=== PATIENT | female | born 1950 | race Caucasian/White ===

== ENCOUNTER → 2018-07-04 | Outpatient (CLI) | payer MEDICARE, BC ==
--- NOTE | 2018-07-04 15:32 | REP ---
PA and lateral chest: There are no comparisons. The lung king are clear. Cardiac size is normal. The johny and mediastinum are unremarkable. There is thoracic scoliosis convex right at the lower thoracic spine left at the thoracolumbar junction. There is grade II compression of the T12 vertebral body, age indeterminate. Electronically Signed by Jessee Rodas MD 07/04/2018 03:24 P
== END ==
LOC: M CLY 14:56
PROVIDERS: ATTEND Family Medicine
DX: M41.24 Other idiopathic scoliosis, thoracic region (principal); G95.20 Unspecified cord compression; R06.02 Shortness of breath; R05 Cough
CPT/HCPCS: 71046; G0463

== ENCOUNTER → 2018-07-12 | Outpatient (REF) | payer MEDICARE, OTHER ==
[2018-07-12 17:12] LABS: ALBUMIN 3.7 GM/DL (3.2-5.2); ALT/SGPT 25 U/L (12-78); BILIRUBIN,TOTAL 0.5 MG/DL (0.2-1.0); BLOOD UREA NITROGEN 16 MG/DL (7-18); CALCIUM LEVEL 8.6 MG/DL (8.8-10.2); CARBON DIOXIDE LEVEL 29 MEQ/L (21-32); CHLORIDE LEVEL 107 MEQ/L (98-107); CHOLESTEROL LEVEL 249 MG/DL (<200); CHOLESTEROL RISK RATIO 5.081 (<5); CREATININE FOR GFR 0.89 MG/DL (0.55-1.30); GLOMERULAR FILTRATION RATE > 60.0 (>45); GLUCOSE, FASTING 95 MG/DL (70-100); HDL CHOLESTEROL 49 MG/DL (>40); LDL CHOLESTEROL 165 MG/DL (<100); NON-HDL-C 200 MG/DL; SODIUM LEVEL 141 MEQ/L (136-145); TOTAL PROTEIN 7.4 GM/DL (6.4-8.2); TRIGLYCERIDES LEVEL 174 MG/DL (<150)
== END ==
LOC: M SFHCCLAY 11:07
PROVIDERS: ATTEND Family Medicine
DX: Z13.1 Encounter for screening for diabetes mellitus (principal); I10 Essential (primary) hypertension; Z13.220 Encounter for screening for lipoid disorders

== ENCOUNTER → 2018-07-19 | Outpatient (REF) | payer MEDICARE, OTHER | LOC: M SFHCCLAY 12:21 | PROVIDERS: ATTEND Family Medicine | DX: R06.02 Shortness of breath (principal); M79.89 Other specified soft tissue disorders | CPT/HCPCS: 83880; 94010; G0463 ==

== ENCOUNTER → 2018-07-25 | Outpatient (CLI) | payer MEDICARE, BC, OTHER ==
--- NOTE | 2018-07-25 15:58 | ECHO ---
OUTPATIENT ECHOCARDIOGRAPHIC REPORT: DATE OF PROCEDURE: 07/25/2018 DATE OF : 1950 AGE: 68 GENDER: Female HEIGHT: 66 inches WEIGHT: 180 pounds BODY SURFACE AREA: 1.19 m2 OUTPATIENT REFERRING PHYSICIAN: Dr. Vane Munson INDICATION: Shortness of breath/edema. MEASUREMENTS: 2-D Measurements: RV: 3.0 cm LV: 3.9 cm Septum: 1.0 cm Posterior wall: 1.0 cm Aortic root: 3.5 cm LA: 3.6 cm LVEF: 75% Doppler Measurements: AV: 1.1 m/s LVOT: 1.0 m/s LVOT diameter: 2.2 cm MV: E 46, A 70, EA ratio 0.7 Early mitral deceleration time: 282 ms E prime: 5 A prime: 11 E/E prime ratio: 9.3 PCWP: 13.3 mmHg PV: 0.7 m/s Pulmonary artery acceleration time: 118 ms RVSP: 33 mmHg IVC: 1.8 cm COMMENTS: Normal sinus rhythm without intraventricular conduction disturbance. M-mode and two-dimensional echocardiography was performed with pulsed, continuous wave, color flow and tissue Doppler studies. Normal left ventricular size, wall thickness and hyperkinetic wall motion. Normal left atrial size but Doppler evidence of an impairment of LV diastolic function with current estimated mean left atrial pressure upper limits of normal. Normal right heart chamber sizes and motion with Doppler evidence of borderline to mild pulmonary hypertension. Normal IVC size and collapse against an elevated central venous pressure. Normal-appearing aortic valve with trace insufficiency. Normal aortic root size. Normal-appearing mitral valvular apparatus with very mild insufficiency. Normal tricuspid valve with mild insufficiency. No apparent intracardiac mass or pericardial effusion. MTDD
== END ==
LOC: M CARPUL 09:21
PROVIDERS: ATTEND Family Medicine
DX: R06.02 Shortness of breath (principal)

== ENCOUNTER → 2019-08-12 | Outpatient (REF) | payer MEDICARE, OTHER ==
[2019-08-12 11:47] LABS: BLOOD UREA NITROGEN 15 MG/DL (7-18); CARBON DIOXIDE LEVEL 29 MEQ/L (21-32); CHLORIDE LEVEL 105 MEQ/L (98-107); CHOLESTEROL LEVEL 232 MG/DL (<200); CHOLESTEROL RISK RATIO 6.444 (<5); CREATININE FOR GFR 0.77 MG/DL (0.55-1.30); GLOMERULAR FILTRATION RATE > 60.0 (>45); GLUCOSE, FASTING 98 MG/DL (70-100); HDL CHOLESTEROL 36 MG/DL (>40); LDL CHOLESTEROL 143 MG/DL (<100); MAGNESIUM LEVEL 2.3 MG/DL (1.8-2.4); NON-HDL-C 196 MG/DL; POTASSIUM SERUM 3.9 MEQ/L (3.5-5.1); SODIUM LEVEL 139 MEQ/L (136-145); TRIGLYCERIDES LEVEL 267 MG/DL (<150)
[2019-08-12 11:55] LABS: VITAMIN B12 LEVEL 379 PG/ML (247-911)
== END ==
LOC: M SFHCCLAY 08:30
PROVIDERS: ATTEND Family Medicine
DX: Z00.00 Encounter for general adult medical examination without abnormal findings (principal); Z13.220 Encounter for screening for lipoid disorders; I11.9 Hypertensive heart disease without heart failure; Z79.899 Other long term (current) drug therapy

== ENCOUNTER → 2019-09-02 | Outpatient (REF) | payer MEDICARE, OTHER ==
[~2019-09-02] MED LIST: ALBU8.5H INH; AMLO1TAB24 PO; BREO1INH INH; CELE1CAP9 PO; GUAISYP9 PO; IRBE300T7 PO; MECL-86 PO; OMEP-218 PO; ROPI0.253 PO; SERT50TA29 PO
== END ==
LOC: M SFHCCLAY 14:29
PROVIDERS: ATTEND Family Medicine
DX: Z11.59 Encounter for screening for other viral diseases (principal); R53.83 Other fatigue; R52 Pain, unspecified
CPT/HCPCS: G0463; U0003

== ENCOUNTER → 2019-11-26 | Outpatient (CLI) | payer MEDICARE, BC, OTHER ==
[~2019-11-26] MED LIST changes: -ALBU8.5H INH; -AMLO1TAB24 PO; -BREO1INH INH; -CELE1CAP9 PO; -GUAISYP9 PO; -IRBE300T7 PO; -MECL-86 PO; +METHACHOLINE KIT (J7674) INH ONE; -OMEP-218 PO; -ROPI0.253 PO; -SERT50TA29 PO
--- NOTE | 2019-11-26 10:48 | PFTRPT ---
Visit Date: 11/26/2019 Referring Doctor: PATRICK Wilder Marcus, M Height: 65.00 Inches Weight: 190.00 Lbs BSA: 1.94 Diagnosis: R06.00 QUALITY: Study of excellent technical quality. PROCEDURE: Under protocol, methacholine was administered. At a maximal dose of 2.5 mg or 188.875 CDUs, a 22% decline of the FEV1 was noted. PC of 10.1 is in the borderline category. Flow rates did return to baseline post-bronchodilator administration. IMPRESSION: Indeterminate methacholine challenge study. Clinical correlation with the above will be necessary. MTDD
--- NOTE | 2019-12-03 11:24 | METHCHAL ---
METHACHOLINE CHALLENGE STUDY DATE: 11/26/2019 ORDERED BY: Renay Beaver QUALITY: Study of excellent technical quality. PROCEDURE: Under protocol, methacholine was administered. At a maximal dose of 2.5 mg or 188.875 CDUs, a 22% decline of the FEV1 was noted. PC of 10.1 is in the borderline category. Flow rates did return to baseline post-bronchodilator administration. IMPRESSION: Indeterminate methacholine challenge study. Clinical correlation with the above will be necessary. MTDD
== END ==
LOC: M CARPUL 09:41
PROVIDERS: ATTEND Physician Assistant
DX: R06.00 Dyspnea, unspecified (principal)
CPT/HCPCS: 94070; 95070; J7674

== ENCOUNTER 2019-12-30 11:45 | Emergency (ER) | payer MEDICARE, BC, OTHER ==
[~2019-12-30] VITALS: Ht 160 cm; Wt 69.5 kg
[2019-12-30] MEDS ORDERED: NS 1,000 ML IV SCH (12:00)
[2019-12-30 12:20] LABS: BASO % 0.4 % (0.0-1.0); EOS % 0.3 % (0.0-3.0); HEMATOCRIT 44.3 % (36.0-47.0); HEMOGLOBIN 13.4 g/dl (12.0-15.5); LYMPH # 2.8 10^3/uL (1.5-5.0); LYMPH % 35.6 % (24.0-44.0); MEAN CORPUSCULAR HEMOGLOBIN 27.2 pg (27.0-33.0); MEAN CORPUSCULAR HGB CONC 30.2 g/dl (32.0-36.5); MEAN CORPUSCULAR VOLUME 89.9 fl (80.0-96.0); MONO # 0.5 10^3/uL (0.0-0.8); MONO % 6.3 % (0.0-5.0); NEUTROPHILS # 4.6 10^3/uL (1.5-8.5); PLATELET COUNT, AUTOMATED 190 10^3/uL (150-450); RED BLOOD COUNT 4.93 10^6/uL (4.00-5.40)
[2019-12-30 12:54] LABS: LDH LACTATE DEHYDROGENASE 691 U/L (84-246)
--- NOTE | 2019-12-30 13:10 | REP ---
INDICATION: Coronavirus workup. COMPARISON: 07/04/2018, 10/14/2019 TECHNIQUE: AP SEATED PORTABLE CHEST FINDINGS: LUNG MANNING ARE WELL INFLATED. THERE IS NO PLEURAL EFFUSION OR LATERAL PLEURAL THICKENING. I SEE NO DEFINITE INFILTRATE, PULMONARY NODULE OR PARENCHYMAL MASS. NO APICAL PLEUROPARENCHYMAL SCARRING. THE HEART IS NOT ENLARGED. THE AORTA IS A TORTUOUS AND CALCIFIED AT THE ARCH WITHOUT ANEURYSM. ITS APPEARANCE STABLE. DEGENERATIVE CHANGES IN THE SPINE AND SHOULDERS AGAIN NOTED. NO FREE AIR. IMPRESSION: NO ACUTE CARDIOPULMONARY CHANGE. STABLE CHEST WITHOUT EFFUSION OR INFILTRATE. <Electronically signed by Hermilo Higginbotham > 12/30/19 [id number]
[2019-12-30 13:26] LABS: CK-MB VALUE MASS < 1.0 NG/ML (<3.6); CPK CREATINE PHOSPHOKINASE 195 U/L (26-192); MB/CK RELATIVE INDEX 0.51 (< OR =4); TROPONIN I < 0.02 NG/ML (< 0.10)
[2019-12-30 13:27] LABS: FERRITIN 121 NG/ML (8-252)
[2019-12-30] MEDS ORDERED: GUAISYP9 PO (16:42)
[2019-12-30] MEDS ORDERED: ROPI0.253 PO (16:42)
[2019-12-30] MEDS ORDERED: MECL-86 PO (16:42)
[2019-12-30] MEDS ORDERED: BREO1INH INH (16:42)
[2019-12-30] MEDS ORDERED: SERT50TA29 PO (16:42)
[2019-12-30] MEDS ORDERED: AMLO1TAB24 PO (16:42)
[2019-12-30] MEDS ORDERED: OMEP-218 PO (16:42)
[2019-12-30] MEDS ORDERED: IRBE300T7 PO (16:42)
[2019-12-30] MEDS ORDERED: ALBU8.5H INH (16:42)
[2019-12-30] MEDS ORDERED: CELE1CAP9 PO (16:42)
[2019-12-30 16:49] LABS: ALBUMIN 3.4 GM/DL (3.2-5.2); ALT/SGPT 32 U/L (12-78); BILIRUBIN,DIRECT < 0.1 MG/DL (0.0-0.2); BILIRUBIN,TOTAL 0.6 MG/DL (0.2-1.0); C REACTIVE PROTEIN QUANTITATIV 2.02 MG/DL (0.00-0.30); TOTAL PROTEIN 7.5 GM/DL (6.4-8.2)
--- NOTE | 2019-12-30 17:58 | CR.PDOC ---
General Date of Consultation: Dec 30, 2019 Referring Provider: Azucena Caceres MD Primary Care Physician: LEROY MTZ DO Attending Physician: CHAITANYA GUERRERO MD Consultation REASON FOR CONSULTATION/CHIEF COMPLAINT: SOB, COVID-19 +, Vasovagal Syncope HISTORY OF PRESENT ILLNESS: Patient is a 69 year old female with a past medical history significant for depressive disorder, hypertension, and reactive airway disease who presented to the [facility] ER with complaint of worsening shortness of breath. About 1-2 weeks ago the patient had noticed increased shortness of breat h and cough. She was then made aware that a friend of hers had tested positive for COVID-19. She went to be tested on Monday11/24/2019 and was found to be positive for COVID-19. Since that time she has had fevers and shortness of breath. She noted increased shortness of breath today and was advised by [facility] to present to the ER for evaluation. In the ER the patient received a chest x-ray which was unremarkable. Her laboratory studies were unrevealing with exception to elevation in LDH as is expected in COVID-19 infection. During blood draw the patient reportedly had a syncopal episode although this was not witnessed by ER staff. The patient stated that this happens when she gets blood drawn. She stated that she felt it coming on and felt hot and sweaty. She denied any chest pain, dizziness, or lightheadedness. Additionally, the patient reportedly became hypoxic with oxygen saturation of 88% on exertion. Hospitalist service was called for admission due to hypoxia and possible syncope. On evaluation in the ED the patient was vitally stable. She was normotensive and oxygen saturations of 97% on room air. She did not appear to be in any acute distress. She was lying comfortably in the stretcher. She stated that she would like to go home. Her son was contacted at the patients request who also agreed with the patient being sent home. Her syncopal episode appeared to be vasovagal in nature and at the current time the patient was not hypoxic ALLERGIES: Please see below. HOME MEDICATIONS: Please see below. PAST MEDICAL HISTORY: 1. Asthma 2. Depressive Disorder 3. Hypertension 4. GERD PAST SURGICAL HISTORY: 1. Bilateral Hip Replacement 2. Rotator Cuff Repair on Left 3. Total Hysterectomy 4. Appendectomy 5. Cholecystectomy FAMILY HISTORY: Denies any family history of sudden cardiac SOCIAL HISTORY: Lives at home with . Denies any history of smoking. Denies alcohol or drug abuse. REVIEW OF SYSTEMS: CONSTITUTIONAL: Admits to fevers. Denies chills. Denies unintentional weight- loss. Denies night sweats HEENT: Admits to cough. Denies sputum production CARDIOVASCULAR: Denies chest pain, pressure, palpitations, or feelings of the heart racing RESPIRATORY: Admits to shortness of breath. GENITOURINARY: Denies dysuria or increased frequency MUSCULOSKELETAL: Admits to some weakness. GASTROINTESTINAL: Admits to loose stool this morning. Denies abdominal pain, nausea, or vomiting SKIN: Denies rashes or lesions NEUROLOGICAL: Denies changes in speech or gait PSYCHIATRIC: Admits to history of depression ENDOCRINE: Denies heat intolerance or cold intolerance HEMATOLOGIC/LYMPHATIC: Denies easy bruising or bleeding PHYSICAL EXAMINATION: VITAL SIGNS: Please see below. GENERAL APPEARANCE: Awake, alert, and oriented. Appears in no acute distress. Lying comfortably in stretcher HEENT: Atraumatic, normocephalic. Eyes are nonicteric. Trachea is midline RESPIRATORY: Clear breath sounds bilaterally. Slightly decreased in bases. Good respiratory effort. No wheezes, rhonchi, or rales CARDIOVASCULAR: Normal S1, S2. Regular rate and rhythm. No clicks rubs or murmurs ABDOMEN: Soft, nondistended. Nontender. Normoactive bowel sounds EXTREMITIES: No edema. Full and equal pulses in bilateral upper and lower extremities NEUROLOGICAL: No focal neurological deficits PSYCHIATRIC: Mood and affect appear appropriate LABORATORY DATA: Please see below. ASSESSMENT/PLAN: 1. Shortness of breath 2/2 COVID-19 -Patient presented with worsening shortness of breath. She was noted by ER staff to have desaturated to 88% with exertion. On evaluation in the ER the patient was not hypoxic. She was saturating at 97% on room air. Laboratory examination did demonstrate any abnormalities. Patient received a chest x-ray which did not demonstrate any abnormal findings -Patient was recommended to discharge home from ER. She is not hypoxic and otherwise vitally stable with no current indication for admission 2. Vasovagal Syncope -ER staff had stated that the patient had a syncopal episode that was unwitnessed. The patient states that she had gotten her blood drawn and felt a hot heavy feeling come over her and then she does not remember anything after that. She states that this has happened before when she has had blood drawn. She recalls maybe a dozen episodes similar to this in her lifetime. -Patients syncopal episode is likely vasovagal given the history. She has been sinus rhythm. She is not hypoxic. Patient wishes to go home. -Recommend 1L NS and discharge home Disposition: Patient was evaluated in the ED. Patient wishes to return home. Her evaluation is rather benign. She did experience a syncopal episode however this is likely vasovagal. Patients plan of care was discussed with her son, Rinku Vega, who can be reached at [phone]. He was informed that the patients care would not be any different in the hospital vs at home. Both patient and son are agreeable to the care plan. Patient and son were advised to return to ED if patients shortness of breath worsened Laboratory Data Labs 24H Laboratory Tests 2 12/30/19 11:59: Bedside Glucose (Misc Panel) 98 12/30/19 12:00: Lactic Acid Level 1.8 12/30/19 12:09: Immature Granulocyte % (Auto) 0.4, Neutrophils (%) (Auto) 57.0, Lymphocytes (%) (Auto) 35.6, Monocytes (%) (Auto) 6.3H, Eosinophils (%) (Auto) 0.3, Basophils (%) (Auto) 0.4, Neutrophils # (Auto) 4.6, Lymphocytes # (Auto) 2.8, Monocytes # (Auto) 0.5, Eosinophils # (Auto) 0.0, Basophils # (Auto) 0.0, Nucleated Red Blood Cells % (auto) 0.0, Ferritin 121, Total Bilirubin 0.6, Direct Bilirubin < 0.1, Aspartate Amino Transf (AST/SGOT) 73H, Alanine Aminotransferase (ALT/SGPT) 32, Alkaline Phosphatase 98, Lactate Dehydrogenase 691H, Total Creatine Kinase 195H, Creatine Kinase MB < 1.0, Creatine Kinase MB Relative Index 0.51, Troponin I < 0.02, C-Reactive Protein, Quantitative 2.02H, Total Protein 7.5, Albumin 3.4, Albumin/Globulin Ratio 0.8L 12/30/19 16:20: 12/30/19 16:22: POC Glucose (Misc Panel) 100, POC Sodium (Misc Panel) 133L, POC Potassium (Misc Panel) 4.9, POC Chloride (Misc Panel) 98, POC Total CO2 (Misc Panel) 28.0H, POC Blood Urea Nitrogen (Misc Panel 21, POC Ionized Calcium (Misc Panel) 4.0L, POC Creatinine (Misc Panel) 0.9, POC Hematocrit (Misc Panel) 45.0 CBC/BMP Laboratory Tests 12/30/19 12:09 Microbiology Microbiology 12/30/19 Blood Culture, Received Pending Allergies Coded Allergies: No Known Allergies (Unverified , 11/22/19) Home Medications Scheduled Amlodipine Besylate (Amlodipine Besylate) 5 Mg Tablet, 5 MG PO QHS, (Reported) Celecoxib (Celecoxib) 200 Mg Capsule, 200 MG PO DAILY, (Reported) Fluticasone/Vilanterol (Breo Ellipta 100-25 Mcg INH) 1 Each Blst.w.dev, 1 PUFF INH DAILY, (Reported) Irbesartan (Irbesartan) 300 Mg Tablet, 300 MG PO DAILY, (Reported) Omeprazole (Omeprazole) 20 Mg Capsule.dr, 20 MG PO DAILY, (Reported) Ropinirole HCl (Ropinirole HCl) 0.25 Mg Tablet, 0.25 MG PO QHS, (Reported) Sertraline HCl (Sertraline HCl) 50 Mg Tablet, 50 MG PO DAILY, (Reported) Scheduled PRN Albuterol Sulfate (Albuterol Sulfate Hfa) 8.5 Gm Hfa.aer.ad, 2 PUFF INH Q4H PRN for SOB/WHEEZING, (Reported) Codeine Phosphate/Guaifenesin (Guaiatussin AC Liquid) 118 Ml Liquid, 5 ML PO QHS PRN for COUGH, (Reported) Meclizine HCl (Meclizine HCl) 25 Mg Tablet, 25 MG PO TID PRN for NAUSEA OR VOMITING, (Reported) GME ATTESTATION GME ATTESTATION My faculty preceptor for this patient encounter was physically present during the encounter and was fully available. All aspects of the patient interview, examination, medical decision making process, and medical care plan development were reviewed and approved by the faculty preceptor. The faculty preceptor is aware and concurs with the plan as stated in the body of this note and will attest to such by his/her cosignature. ATTENDING NOTE I, Chaitanya Guerrero, have independently examined this patient and performed my own physical exam, as well as reviewed the documentation and edited where necessary. I have discussed in detail with the resident / student the findings and plan of treatment as documented by the resident / student and edited their note. I agree with their findings and treatment plan and have edited their documentation. I will continue to follow the patient during this hospital stay. JULIANNE GUTIERREZ DO Dec 30, 2019 17:58 CHAITANYA GUERRERO MD Dec 30, 2019 18:14
[2019-12-30 18:40] VITALS: BP 142/73
--- NOTE | 2019-12-31 00:51 | ECGEPIP ---
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
== END 2019-12-30 18:40 | disposition home or self-care (01) ==
LOC: M ED 11:45
DX: U07.1 COVID-19 (principal); R53.83 Other fatigue; R50.9 Fever, unspecified; R05 Cough; I10 Essential (primary) hypertension; R55 Syncope and collapse; F32.9 Major depressive disorder, single episode, unspecified; J45.909 Unspecified asthma, uncomplicated; K21.9 Gastro-esophageal reflux disease without esophagitis

== ENCOUNTER 2020-01-03 17:10 | Inpatient (IN) | payer MEDICARE, BC, OTHER ==
[~2020-01-03] VITALS: Ht 165.1 cm; Wt 82.9 kg
[2020-01-03] MEDS: amLODIPine 5 MG TAB PO SCH
[2020-01-03] MEDS: methylPREDNISolone 40MG 1ML VIAL IV SCH
[2020-01-03] MEDS: ENOXAPARIN 40MG/0.4ML SYRINGE (J1650 PER 10MG) SC SCH
[~2020-01-03 17:10] MED LIST changes: +ALBU8.5H INH; +AMLO1TAB24 PO; +BREO1INH INH; +CELE1CAP9 PO; +GUAISYP9 PO; +IRBE300T7 PO; +MECL-86 PO; -METHACHOLINE KIT (J7674) INH ONE; +OMEP-218 PO; +ROPI0.253 PO; +SERT50TA29 PO
[2020-01-03 17:53] LABS: ABG BASE EXCESS 0.8 (-2.0-2.0); ABG HCO3 24.4 MEQ/L (22.0-26.0); ABG O2 SATURATION 82.9 % (95.0-99.0); ABG PARTIAL PRESSURE CO2 35.8 mmHg (35.0-45.0); ABG STANDARD HCO3 24.8 MEQ/L (22.0-26.0); ABG TOTAL CO2 25.5 MEQ/L (23.0-31.0); ABG pH (ARTERIAL) 7.451 UNITS (7.350-7.450)
[2020-01-03 18:11] LABS: BASO % 0.2 % (0.0-1.0); EOS % 0.3 % (0.0-3.0); HEMATOCRIT 38.8 % (36.0-47.0); HEMOGLOBIN 12.2 g/dl (12.0-15.5); LYMPH # 1.8 10^3/uL (1.5-5.0); LYMPH % 17.4 % (24.0-44.0); MEAN CORPUSCULAR HEMOGLOBIN 27.4 pg (27.0-33.0); MEAN CORPUSCULAR HGB CONC 31.4 g/dl (32.0-36.5); MEAN CORPUSCULAR VOLUME 87.2 fl (80.0-96.0); MONO # 0.4 10^3/uL (0.0-0.8); MONO % 4.2 % (0.0-5.0); NEUTROPHILS # 7.8 10^3/uL (1.5-8.5); NEUTROPHILS % 77.2 % (36.0-66.0); PLATELET COUNT, AUTOMATED 229 10^3/uL (150-450); RED BLOOD COUNT 4.45 10^6/uL (4.00-5.40)
[2020-01-03 18:29] LABS: INR 1.21; PARTIAL THROMBOPLASTIN TIME 36.8 SECONDS (24.2-38.5); PROTHROMBIN TIME 15.6 SECONDS (12.5-14.3)
[2020-01-03 18:32] LABS: D-DIMER QUANT 1424.38 ng/ml (<500)
[2020-01-03 18:34] LABS: C REACTIVE PROTEIN QUANTITATIV 9.38 MG/DL (0.00-0.30); FERRITIN 281 NG/ML (8-252); LDH LACTATE DEHYDROGENASE 248 U/L (84-246)
[2020-01-03 18:42] LABS: ALBUMIN 3.1 GM/DL (3.2-5.2); ALT/SGPT 46 U/L (12-78); BILIRUBIN,DIRECT 0.1 MG/DL (0.0-0.2); BILIRUBIN,TOTAL 0.6 MG/DL (0.2-1.0); BLOOD UREA NITROGEN 15 MG/DL (7-18); CALCIUM LEVEL 8.3 MG/DL (8.8-10.2); CARBON DIOXIDE LEVEL 25 MEQ/L (21-32); CHLORIDE LEVEL 100 MEQ/L (98-107); CK-MB VALUE MASS < 1.0 NG/ML (<3.6); CPK CREATINE PHOSPHOKINASE 65 U/L (26-192); GLOMERULAR FILTRATION RATE > 60.0 (>45); GLUCOSE, FASTING 99 MG/DL (70-100); MB/CK RELATIVE INDEX 1.54 (< OR =4); POTASSIUM SERUM 3.6 MEQ/L (3.5-5.1); SODIUM LEVEL 133 MEQ/L (136-145); TOTAL PROTEIN 6.5 GM/DL (6.4-8.2); TROPONIN I < 0.02 NG/ML (< 0.10)
--- NOTE | 2020-01-03 18:58 | REP ---
INDICATION: CHEST PAIN. COMPARISON: 12/30/2019 FINDINGS: The technique utilized in obtaining the radiograph has magnified the cardiac silhouette and accentuated the interstitial markings. The superior mediastinal structures are midline. The cardiac silhouette is unremarkable in size, shape, and position. The diaphragmatic surfaces of the lungs are regular, and the costophrenic angles are clear. The pulmonary king are clear. The imaged osseous structures are intact. IMPRESSION: There is no acute cardiopulmonary disease. <Electronically signed by John Colón > 01/03/20 1343
--- NOTE | 2020-01-03 19:30 | ECGEPIP ---
[facility] - ED Test Date: 2020-01-03 Pat Name: ELIZABETH CLARK Department: Room: - Gender: Female Psychologist Developmental: CAPO : 1950 Requested By: JOAN Lopez Order Number: [id number] Reading MD: Azucena Caceres Measurements Intervals [place] Rate: 86 P: 60 NC: 153 QRS: 37 QRSD: 97 T: 59 QT: 387 QTc: 464 Interpretive Statements SINUS RHYTHM Electronically Signed on 01-03-2020 19:30:36 EST by Azucena Caceres
[2020-01-03] MEDS ORDERED: ACET-683 PO (20:46)
[2020-01-03] MEDS ORDERED: dexameTHASONE 4 MG/ML 1ML VIAL (J1100 PER 1MG) IV SCH (21:00)
[2020-01-03] MEDS ORDERED: ALBUTEROL 90 MCG/ACT 8GM HFA INHALER INH PRN ×2 (21:30→22:45)
[2020-01-03] MEDS ORDERED: MECLIZINE 25 MG TABLET PO PRN (21:30)
[2020-01-03 21:46] LABS: INR 1.24; PROTHROMBIN TIME 15.9 SECONDS (12.5-14.3)
[2020-01-03 21:47] LABS: PARTIAL THROMBOPLASTIN TIME 35.9 SECONDS (24.2-38.5)
[2020-01-03 21:50] LABS: D-DIMER QUANT 1433.52 ng/ml (<500)
[2020-01-03 21:59] LABS: ALBUMIN 3.2 GM/DL (3.2-5.2); ALT/SGPT 52 U/L (12-78); BILIRUBIN,DIRECT 0.2 MG/DL (0.0-0.2); BILIRUBIN,TOTAL 0.7 MG/DL (0.2-1.0); C REACTIVE PROTEIN QUANTITATIV 9.42 MG/DL (0.00-0.30); CK-MB VALUE MASS < 1.0 NG/ML (<3.6); CPK CREATINE PHOSPHOKINASE 44 U/L (26-192); FERRITIN 282 NG/ML (8-252); LDH LACTATE DEHYDROGENASE 254 U/L (84-246); MB/CK RELATIVE INDEX 2.27 (< OR =4); NT-PRO BNP 190 PG/ML (<125); TOTAL PROTEIN 6.5 GM/DL (6.4-8.2); TRIGLYCERIDES LEVEL 120 MG/DL (<150); TROPONIN I < 0.02 NG/ML (< 0.10)
[2020-01-03 22:18] LABS: HEPATITIS B SURFACE ANTIGEN NEGATIVE (NEGATIVE)
--- NOTE | 2020-01-03 22:37 | IPNPDOC ---
Date Seen The patient was seen on 01/03/20. Progress Note Per pulmologist call center support consultant, Dr. Bradford, recommendations are as follows: -due to severe hypoxia 87% RA o2 sat at rest , and 84% RA o2 sat with ambulation, may start on 5day course of Remdesevir, despite normal CXR. -monitor daily LFTs. -start on solumedrol 40 mg iv bid. dc decadron. VS, I&O, 24H, Fishbone Vital Signs/I&O Vital Signs Date Time Temp Pulse Resp B/P (MAP) Pulse Ox O2 Delivery O2 Flow Rate FiO2 01/03/20 17:26 99.6 91 16 115/56 95 Room Air Laboratory Data 24H LABS Laboratory Tests 2 01/03/20 17:40: Blood Gas Bicarbonate Standard 24.8, Arterial Blood pH 7.451H, Arterial Blood Partial Pressure CO2 35.8, Arterial Blood Partial Pressure O2 43.0*L, Arterial Blood Total CO2 25.5, Arterial Blood HCO3 24.4, Arterial Blood Base Excess 0.8, Arterial Blood Oxygen Saturation 82.9L 01/03/20 17:53: Immature Granulocyte % (Auto) 0.7, Neutrophils (%) (Auto) 77.2H, Lymphocytes (%) (Auto) 17.4L, Monocytes (%) (Auto) 4.2, Eosinophils (%) (Auto) 0.3, Basophils (%) (Auto) 0.2, Neutrophils # (Auto) 7.8, Lymphocytes # (Auto) 1.8, Monocytes # (Auto) 0.4, Eosinophils # (Auto) 0.0, Basophils # (Auto) 0.0, Nucleated Red Blood Cells % (auto) 0.0 01/03/20 17:54: Prothrombin Time 15.6H, Prothromb Time International Ratio 1.21, Activated Partial Thromboplast Time 36.8, D-Dimer, Quantitative 1424.38H, Anion Gap 8, Glomerular Filtration Rate > 60.0, Calcium Level 8.3L, Ferritin 281H, Total Bilirubin 0.6, Direct Bilirubin 0.1, Aspartate Amino Transf (AST/SGOT) 54H, Alanine Aminotransferase (ALT/SGPT) 46, Alkaline Phosphatase 100, Lactate Dehydrogenase 248H, Total Creatine Kinase 65, Creatine Kinase MB < 1.0, Creatine Kinase MB Relative Index 1.54, Troponin I < 0.02, C-Reactive Protein, Quantitative 9.38H, Total Protein 6.5, Albumin 3.1L, Albumin/Globulin Ratio 0.9L, Procalcitonin <0.05 01/03/20 18:23: POC pH (Misc Panel) 7.485H, POC Base Excess (Misc Panel) -3.0L, POC Saturated Percent O2 (Misc) 94L, POC pO2 (Misc Panel) 64.0L, POC pCO2 (Misc Panel) 26.7L, POC HCO3 (Misc Panel) 20.1L, POC Total CO2 (Misc Panel) 21.0L 01/03/20 21:24: Prothrombin Time 15.9H, Prothromb Time International Ratio 1.24, Activated Partial Thromboplast Time 35.9, Fibrinogen 528H, D-Dimer, Quantitative 1433.52H, Lactic Acid Level 1.0, Ferritin 282H, Total Bilirubin 0.7, Direct Bilirubin 0.2, Aspartate Amino Transf (AST/SGOT) 56H, Alanine Aminotransferase (ALT/SGPT) 52, Alkaline Phosphatase 102, Lactate Dehydrogenase 254H, Total Creatine Kinase 44, Creatine Kinase MB < 1.0, Creatine Kinase MB Relative Index 2.27, Troponin I < 0.02, C-Reactive Protein, Quantitative 9.42H, TI-Hfg-P-Type Natriuretic Peptide 190H, Total Protein 6.5, Albumin 3.2, Albumin/Globulin Ratio 1.0L, Triglycerides Level 120, Hepatitis B Surface Antigen NEGATIVE CBC/BMP Laboratory Tests 01/03/20 17:53 01/03/20 17:54 Microbiology Microbiology 01/03/20 Blood Culture, Received Pending 01/03/20 Blood Culture, Received Pending JONO VIRGEN MD Jan 03, 2020 22:37
[2020-01-03 22:47] LABS: HIV 1&2 SCREEN CENTAUR NEGATIVE (NEGATIVE)
--- NOTE | 2020-01-03 22:57 | HPEPDOC ---
[facility] Medical History & Physical Date of Admission Jan 03, 2020 Date of Service: Jan 03, 2020 Primary Care Physician: LEROY MTZ DO Attending Physician: JONO VIRGEN MD History and Physical CHIEF COMPLAINT: Shortness of breath, low oxygen saturations HISTORY OF PRESENT ILLNESS: Patient is a 69-year-old female who presented to the emergency department earlier today after monitoring her oxygen saturations at home and finding them to be in the mid 80s. Patient was diagnosed with Covid 19 back on 12/26/2019. Since then, she has been experiencing some difficulty tiana athing with exertion, low-grade fevers, body aches, and diarrhea. Patient states that she has been monitoring her oxygen and during the day today, it dropped into the mid 80s which prompted her to come in the emergency department. While in the emergency room, patient's oxygen saturations on room air were greater than 95%. When ambulated, patient's O2 saturation dropped into the 80s and she was subsequently placed on low-flow oxygen with nasal cannula. Patient says she still feels achy and very tired but is otherwise doing okay. She's had a dry cough that has been nonproductive. Patient's was also diagnosed with Covid 19 around the same time but he has not had any issues with the virus. PAST MEDICAL HISTORY: 1. Hypertension. 2. Depression. 3. GERD. 4. Restless leg syndrome 5. Skin cancer on left side of nose followed by dermatology in [place] 6. Recent diagnosis of asthma PAST SURGICAL HISTORY: 1. Cholecystectomy. 2. Right rotator cuff repair. 3. Bilateral total hip arthroplasties. 4. Total hysterectomy 5. Skin cancer removal SOCIAL HISTORY: Patient was at home with her and denies smoking cigarettes, drinking alcohol, or any other drug use. Patient is retired FAMILY HISTORY: Patient denies any pertinent history. On chart review, patient's parents are both and both had a history of hypertension ALLERGIES: Please see below. REVIEW OF SYSTEMS: General: Patient reports low-grade fevers for the past 8 days HEENT: Patient denies headaches Cardiovascular: Patient denies chest pain Respiratory: Patient reports some difficulty breathing with exertion and a dry cough GI: Patient reports some nausea and diarrhea but denies abdominal pain and vomiting : Patient denies increased frequency or pain with urination Extremities: Patient denies swelling or pain in extremities Neurological: Patient denies numbness or tingling in legs Skin: Patient denies any new rashes or lesions. Hematologic: Patient denies any easy bruising. Lymphatic: Patient denies any lumps lumps or bumps in neck, axilla, or groin HOME MEDICATIONS: Please see below. PHYSICAL EXAMINATION: VITAL SIGNS: See below General: Alert and oriented female patient who was laying on the stretcher in the emergency department with nasal cannula oxygen in place when I walked into the room. Patient did not appear to be in any acute distress but did appear very tired HEENT: Normocephalic, atraumatic, moist mucous membranes. Neck: No lymphadenopathy or thyromegaly Cardiac: Regular rate and rhythm, no murmurs, normal S1, normal S2 Pulm: Clear to auscultation bilaterally. No wheezes, rhonchi, rales Abd: Nondistended, nontender to palpation, normal bowel sounds Ext: No edema bilateral lower extremities dorsalis pedis pulses 2/4 bilaterally. Skin: No rashes or other lesions present. LABORATORY DATA: See below. IMAGING: A chest x-ray performed on 01/03/2020 was reported to show no acute cardiopulmonary disease. MICROBIOLOGY: Please see below. ASSESSMENT: Patient is a 69-year-old female who was diagnosed with Covid 19 on 12/26/2019 who has been monitoring her O2 saturations at home and found them to be in the mid 80s today. PLAN: 1. Covid 19. Patient reports her oxygen saturation to be in the mid 80s when she was at home. In the emergency department while at rest, her O2 saturations are around 95% or greater. When patient ambulated, her O2 saturations drop. Patient's O2 saturations did decrease to the low 90s while on nasal cannula oxygen. Pulmonology was contacted who recommended starting the patient on Remdesivir as well as Solu-Medrol. Ultrasound of the lower legs we done to rule out any DVT that is formed. Patient will be placed on therapeutic Lovenox. 2. Hypertension. We will continue patient's home medications with hold parameters. 3. Asthma. We will continue the patient's home medications and monitor the patient's oxygen saturation closely due to the Covid 19. Patient is not currently wheezy so I do not believe this is an asthma exacerbation. 4. GERD. We'll continue the patient's medications 5. Depression. We will continue the patient's home medications. 6. DVT prophylaxis: Patient is on therapeutic doses of Lovenox. CODE STATUS: Full code Vital Signs Vital Signs Date Time Temp Pulse Resp B/P (MAP) Pulse Ox O2 Delivery O2 Flow Rate FiO2 01/03/20 17:26 99.6 91 16 115/56 95 Room Air Laboratory Data Labs 24H Laboratory Tests 2 01/03/20 17:40: Blood Gas Bicarbonate Standard 24.8, Arterial Blood pH 7.451H, Arterial Blood Partial Pressure CO2 35.8, Arterial Blood Partial Pressure O2 43.0*L, Arterial Blood Total CO2 25.5, Arterial Blood HCO3 24.4, Arterial Blood Base Excess 0.8, Arterial Blood Oxygen Saturation 82.9L 01/03/20 17:53: Immature Granulocyte % (Auto) 0.7, Neutrophils (%) (Auto) 77.2H, Lymphocytes (%) (Auto) 17.4L, Monocytes (%) (Auto) 4.2, Eosinophils (%) (Auto) 0.3, Basophils (%) (Auto) 0.2, Neutrophils # (Auto) 7.8, Lymphocytes # (Auto) 1.8, Monocytes # (Auto) 0.4, Eosinophils # (Auto) 0.0, Basophils # (Auto) 0.0, Nucleated Red Blood Cells % (auto) 0.0 01/03/20 17:54: Prothrombin Time 15.6H, Prothromb Time International Ratio 1.21, Activated Partial Thromboplast Time 36.8, D-Dimer, Quantitative 1424.38H, Anion Gap 8, Glomerular Filtration Rate > 60.0, Calcium Level 8.3L, Ferritin 281H, Total Bilirubin 0.6, Direct Bilirubin 0.1, Aspartate Amino Transf (AST/SGOT) 54H, Alanine Aminotransferase (ALT/SGPT) 46, Alkaline Phosphatase 100, Lactate Dehydrogenase 248H, Total Creatine Kinase 65, Creatine Kinase MB < 1.0, Creatine Kinase MB Relative Index 1.54, Troponin I < 0.02, C-Reactive Protein, Quantitative 9.38H, Total Protein 6.5, Albumin 3.1L, Albumin/Globulin Ratio 0.9L, Procalcitonin <0.05 01/03/20 18:23: POC pH (Misc Panel) 7.485H, POC Base Excess (Misc Panel) -3.0L, POC Saturated Percent O2 (Misc) 94L, POC pO2 (Misc Panel) 64.0L, POC pCO2 (Misc Panel) 26.7L, POC HCO3 (Misc Panel) 20.1L, POC Total CO2 (Misc Panel) 21.0L 01/03/20 21:24: Prothrombin Time 15.9H, Prothromb Time International Ratio 1.24, Activated Partial Thromboplast Time 35.9, Fibrinogen 528H, D-Dimer, Quantitative 1433.52H, Lactic Acid Level 1.0, Ferritin 282H, Total Bilirubin 0.7, Direct Bilirubin 0.2, Aspartate Amino Transf (AST/SGOT) 56H, Alanine Aminotransferase (ALT/SGPT) 52, Alkaline Phosphatase 102, Lactate Dehydrogenase 254H, Total Creatine Kinase 44, Creatine Kinase MB < 1.0, Creatine Kinase MB Relative Index 2.27, Troponin I < 0.02, C-Reactive Protein, Quantitative 9.42H, UU-Raw-N-Type Natriuretic Peptide 190H, Total Protein 6.5, Albumin 3.2, Albumin/Globulin Ratio 1.0L, Triglycerides Level 120, Hepatitis B Surface Antigen NEGATIVE CBC/BMP Laboratory Tests 01/03/20 17:53 01/03/20 17:54 Microbiology Microbiology 01/03/20 Blood Culture, Received Pending 01/03/20 Blood Culture, Received Pending Home Medications Scheduled Amlodipine Besylate (Amlodipine Besylate) 5 Mg Tablet, 5 MG PO QHS Celecoxib (Celecoxib) 200 Mg Capsule, 200 MG PO DAILY Fluticasone/Vilanterol (Breo Ellipta 100-25 Mcg INH) 1 Each Blst.w.dev, 1 PUFF INH DAILY Irbesartan (Irbesartan) 300 Mg Tablet, 300 MG PO DAILY Omeprazole (Omeprazole) 20 Mg Capsule.dr, 20 MG PO DAILY Ropinirole HCl (Ropinirole HCl) 0.25 Mg Tablet, 0.25 MG PO QHS Sertraline HCl (Sertraline HCl) 50 Mg Tablet, 50 MG PO DAILY Scheduled PRN Acetaminophen (Acetaminophen) 500 Mg Tablet, 1,000 MG PO Q6H PRN for PAIN OR FEVER Albuterol Sulfate (Albuterol Sulfate Hfa) 8.5 Gm Hfa.aer.ad, 2 PUFF INH Q4H PRN for SOB/WHEEZING Meclizine HCl (Meclizine HCl) 25 Mg Tablet, 25 MG PO TID PRN for NAUSEA OR VOMITING Allergies Coded Allergies: No Known Allergies (Unverified , 11/22/19) A-FIB/CHADSVASC A-FIB History Current/History of A-Fib/PAF?: No GME ATTESTATION GME ATTESTATION My faculty preceptor for this patient encounter was physically present during the encounter and was fully available. All aspects of the patient interview, examination, medical decision making process, and medical care plan development were reviewed and approved by the faculty preceptor. The faculty preceptor is aware and concurs with the plan as stated in the body of this note and will attest to such by his/her cosignature. ATTENDING NOTE I have independently interviewed and examined the patient at the bedside, and agree with the physical findings, assessment, and management plan as documented by my Resident Physician. The patient's questions have been answered. The patient has been encouraged to contact our office for any new concerns or questions. MICHAELLE MADSEN DO Jan 03, 2020 22:57 JONO VIRGEN MD Jan 04, 2020 00:15
[2020-01-03] MEDS ORDERED: REMDESIVIR (INVESTIGATIONAL) 200 MG in NS 210 ML IV ONE (23:00)
--- NOTE | 2020-01-03 23:32 | REPVR ---
PROCEDURE INFORMATION: Exam: US Duplex Lower Extremity Veins, Bilateral Exam date and time: 01/03/2020 11:20 PM Age: 69 years old Clinical indication: Condition or disease; Other: Covid; Additional info: Hypoxia covid positive R/O dvt TECHNIQUE: Imaging protocol: Real-time duplex ultrasound of the extremities with 2-D sal[place] scale, color Doppler flow and spectral waveform analysis with image documentation. Complete exam focused on the bilateral lower extremity veins. COMPARISON: No relevant prior studies available. FINDINGS: Right deep veins: Common femoral, femoral, proximal profunda femoral and popliteal veins are patent without thrombus. Normal Doppler waveforms. Normal compressibility and/or augmentation response. Right superficial veins: Saphenofemoral junction is patent without thrombus. Left deep veins: Common femoral, femoral, proximal profunda femoral and popliteal veins are patent without thrombus. Normal Doppler waveforms. Normal compressibility and/or augmentation response. Left superficial veins: Saphenofemoral junction is patent without thrombus. Soft tissues: No abnormal focal fluid collection. IMPRESSION: No evidence of lower extremity deep vein thrombosis. Electronically signed by: Berto Medina On 01/03/2020 23:32:27 PM
[2020-01-04] VITALS (11 sets, daily range): BP systolic 116–133; BP diastolic 60–70; O2SAT 91–99
[2020-01-04] MEDS ORDERED: SODIUM CHLORIDE 0.9% INJ 10 ML SYR IV ONE (01:00)
[2020-01-04] MEDS: ALBUTEROL 90 MCG/ACT 8GM HFA INHALER INH SCH ×4 (03:26→20:00)
[2020-01-04] MEDS: rOPINIRole 0.25 MG TAB(REQUIP) PO SCH ×2 (03:43→20:23)
[2020-01-04] MEDS: ASPIRIN 81 MG ENTERIC TAB PO SCH (08:18)
[2020-01-04] MEDS: SERTRALINE HCL 50 MG TAB PO SCH (08:18)
[2020-01-04] MEDS: OMEPRAZOLE 20 MG CAP PO SCH (08:18)
[2020-01-04] MEDS: IRBESARTAN 150MG TAB PO SCH (08:19)
[2020-01-04 08:20] LABS: BASO % 0.3 % (0.0-1.0); HEMATOCRIT 40.5 % (36.0-47.0); HEMOGLOBIN 12.7 g/dl (12.0-15.5); LYMPH % 12.5 % (24.0-44.0); MEAN CORPUSCULAR HEMOGLOBIN 27.1 pg (27.0-33.0); MEAN CORPUSCULAR HGB CONC 31.4 g/dl (32.0-36.5); MEAN CORPUSCULAR VOLUME 86.5 fl (80.0-96.0); MONO # 0.1 10^3/uL (0.0-0.8); MONO % 1.2 % (0.0-5.0); NEUTROPHILS # 6.6 10^3/uL (1.5-8.5); NEUTROPHILS % 85.2 % (36.0-66.0); PLATELET COUNT, AUTOMATED 257 10^3/uL (150-450); RED BLOOD COUNT 4.68 10^6/uL (4.00-5.40); WHITE BLOOD COUNT 7.8 10^3/uL (4.0-10.0)
[2020-01-04 08:33] LABS: INR 1.23; PROTHROMBIN TIME 15.8 SECONDS (12.5-14.3)
[2020-01-04 08:34] LABS: PARTIAL THROMBOPLASTIN TIME 41.1 SECONDS (24.2-38.5)
[2020-01-04 08:36] LABS: D-DIMER QUANT 1606.25 ng/ml (<500)
[2020-01-04 08:40] LABS: ALT/SGPT 60 U/L (12-78); BILIRUBIN,DIRECT 0.1 MG/DL (0.0-0.2); BILIRUBIN,TOTAL 0.4 MG/DL (0.2-1.0); BLOOD UREA NITROGEN 17 MG/DL (7-18); CALCIUM LEVEL 8.1 MG/DL (8.8-10.2); CARBON DIOXIDE LEVEL 25 MEQ/L (21-32); CHLORIDE LEVEL 103 MEQ/L (98-107); CREATININE FOR GFR 0.92 MG/DL (0.55-1.30); FERRITIN 308 NG/ML (8-252); GLOMERULAR FILTRATION RATE > 60.0 (>45); GLUCOSE, FASTING 152 MG/DL (70-100); MAGNESIUM LEVEL 2.1 MG/DL (1.8-2.4); NT-PRO BNP 113 PG/ML (<125); POTASSIUM SERUM 3.8 MEQ/L (3.5-5.1); SODIUM LEVEL 137 MEQ/L (136-145); TOTAL PROTEIN 6.7 GM/DL (6.4-8.2)
[2020-01-04 08:43] LABS: CK-MB VALUE MASS 2.8 NG/ML (<3.6); CPK CREATINE PHOSPHOKINASE 104 U/L (26-192); LDH LACTATE DEHYDROGENASE 259 U/L (84-246); MB/CK RELATIVE INDEX 2.69 (< OR =4); TROPONIN I < 0.02 NG/ML (< 0.10)
[2020-01-04] MEDS ORDERED: ENOXAPARIN 40MG/0.4ML SYRINGE (J1650 PER 10MG) SC SCH (09:00)
[2020-01-04 09:02] LABS: ERYTHROCYTE SEDIMENTATION RATE 46 mm/hr (0-30)
--- NOTE | 2020-01-04 09:20 | ECGEPIP ---
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
[2020-01-04] MEDS: methylPREDNISolone 40MG 1ML VIAL IV SCH ×2 (10:32→22:07)
[2020-01-04] MEDS: ENOXAPARIN 40MG/0.4ML SYRINGE (J1650 PER 10MG) SC SCH (10:33)
--- NOTE | 2020-01-04 13:48 | IPNPDOC ---
Date Seen The patient was seen on 01/04/20. Progress Note SUBJECTIVE: Discussed patient with nursing, and she is doing well reduced oxygen requirement down to 3 L she is saturating 94% on exertion. She dropped to 92%. Patient afebrile overnight. Vital signs stable. OBJECTIVE PHYSICAL EXAMINATION: VITAL SIGNS: Reviewed Patient not examined at bedside this morning to reduce risk of covid transmission LABORATORY DATA, IMAGING STUDIES, MICROBIOLOGY: Please see below. Venous dupplex bilateral LE (01/03/20): IMPRESSION: No evidence of lower extremity deep vein thrombosis. CXR (01/03/20): IMPRESSION: There is no acute cardiopulmonary disease. DVT prophylaxis ordered?: Y, patient is on 0.5 mg/kg Lovenox q12h ASSESSMENT AND PLAN: 69-year-old female with a history of hypertension, depression, GERD, asthma, admitted for desaturation, diagnosed with Covid on 12/26/19 PROBLEMS: 1. Covid 19: Patient saturating at 92% on exertion with 3 L of nasal cannula. Solu-Medrol 40 mg q12h as well as remdesivir. Venous duplex of bilateral lower extremities did not show DVT. Lovenox 0.5 mg/kg lovenox q12h. D/w Dr. Bradford, [facility], ok to continue half dose unless significantly increases O2 requirement. Monitor daily labs. LDH 259. D-dimer 1600. Fibronogen 616. CRP 10.5 (up from 9.42). ESR 46. 2. Hypertension. Continue home medications. Irbesartan 300 mg PO daily. Amlodipine 5 mg qhs. 3. Asthma: Continue home inhalers Her. GERD. Continue pantoprazole 5. Depression. Continue home meds 6. RLS: ropinirole 0.25 mg qhs DVT prophylaxis: Patient is receiving 0.5 mg/kg of Lovenox every 12 hours VS, I&O, 24H, Idrisbone Vital Signs/I&O Vital Signs Date Time Temp Pulse Resp B/P (MAP) Pulse Ox O2 Delivery O2 Flow Rate FiO2 01/04/20 12:00 95 3.0 01/04/20 08:19 120/60 01/04/20 08:00 97.9 88 20 Nasal Cannula I&O- Last 24 Hours up to 6 AM 01/04/20 06:00 Intake Total 63 ml Output Total 350 ml Balance -287 ml Laboratory Data 24H LABS Laboratory Tests 2 01/03/20 17:40: Blood Gas Bicarbonate Standard 24.8, Arterial Blood pH 7.451H, Arterial Blood Partial Pressure CO2 35.8, Arterial Blood Partial Pressure O2 43.0*L, Arterial Blood Total CO2 25.5, Arterial Blood HCO3 24.4, Arterial Blood Base Excess 0.8, Arterial Blood Oxygen Saturation 82.9L 01/03/20 17:53: Immature Granulocyte % (Auto) 0.7, Neutrophils (%) (Auto) 77.2H, Lymphocytes (%) (Auto) 17.4L, Monocytes (%) (Auto) 4.2, Eosinophils (%) (Auto) 0.3, Basophils (%) (Auto) 0.2, Neutrophils # (Auto) 7.8, Lymphocytes # (Auto) 1.8, Monocytes # (Auto) 0.4, Eosinophils # (Auto) 0.0, Basophils # (Auto) 0.0, Nucleated Red Blood Cells % (auto) 0.0 01/03/20 17:54: Prothrombin Time 15.6H, Prothromb Time International Ratio 1.21, Activated Partial Thromboplast Time 36.8, D-Dimer, Quantitative 1424.38H, Anion Gap 8, Glomerular Filtration Rate > 60.0, Calcium Level 8.3L, Ferritin 281H, Total Bilirubin 0.6, Direct Bilirubin 0.1, Aspartate Amino Transf (AST/SGOT) 54H, Alanine Aminotransferase (ALT/SGPT) 46, Alkaline Phosphatase 100, Lactate Dehydrogenase 248H, Total Creatine Kinase 65, Creatine Kinase MB < 1.0, Creatine Kinase MB Relative Index 1.54, Troponin I < 0.02, C-Reactive Protein, Quantitative 9.38H, Total Protein 6.5, Albumin 3.1L, Albumin/Globulin Ratio 0.9L, Procalcitonin <0.05 01/03/20 18:23: POC pH (Misc Panel) 7.485H, POC Base Excess (Misc Panel) -3.0L, POC Saturated Percent O2 (Misc) 94L, POC pO2 (Misc Panel) 64.0L, POC pCO2 (Misc Panel) 26.7L, POC HCO3 (Misc Panel) 20.1L, POC Total CO2 (Misc Panel) 21.0L 01/03/20 21:24: Prothrombin Time 15.9H, Prothromb Time International Ratio 1.24, Activated Partial Thromboplast Time 35.9, Fibrinogen 528H, D-Dimer, Quantitative 1433.52H, Lactic Acid Level 1.0, Ferritin 282H, Total Bilirubin 0.7, Direct Bilirubin 0.2, Aspartate Amino Transf (AST/SGOT) 56H, Alanine Aminotransferase (ALT/SGPT) 52, Alkaline Phosphatase 102, Lactate Dehydrogenase 254H, Total Creatine Kinase 44, Creatine Kinase MB < 1.0, Creatine Kinase MB Relative Index 2.27, Troponin I < 0.02, C-Reactive Protein, Quantitative 9.42H, YP-Tvh-M-Type Natriuretic Peptide 190H, Total Protein 6.5, Albumin 3.2, Albumin/Globulin Ratio 1.0L, Triglycerides Level 120, Hepatitis B Surface Antigen NEGATIVE, HIV Antigen/Antibody Combo Qual NEGATIVE 01/04/20 07:55: Prothrombin Time 15.8H, Prothromb Time International Ratio 1.23, Activated Partial Thromboplast Time 41.1H, Fibrinogen 616H, D-Dimer, Quantitative 1606.25H, Ferritin 308H, Total Bilirubin 0.4, Direct Bilirubin 0.1, Aspartate Amino Transf (AST/SGOT) 62H, Alanine Aminotransferase (ALT/SGPT) 60, Alkaline Phosphatase 116, Lactate Dehydrogenase 259H, Total Creatine Kinase 104#, Creatine Kinase MB 2.8, Creatine Kinase MB Relative Index 2.69, Troponin I < 0.02, C-Reactive Protein, Quantitative 10.50H, DO-Qeq-Z-Type Natriuretic Peptide 113, Total Protein 6.7, Albumin 3.0L, Albumin/Globulin Ratio 0.8L, Immature Granulocyte % (Auto) 0.8, Neutrophils (%) (Auto) 85.2H, Lymphocytes (%) (Auto) 12.5L, Monocytes (%) (Auto) 1.2, Eosinophils (%) (Auto) 0.0, Basophils (%) (Auto) 0.3, Neutrophils # (Auto) 6.6, Lymphocytes # (Auto) 1.0L, Monocytes # (Auto) 0.1, Eosinophils # (Auto) 0.0, Basophils # (Auto) 0.0, Nucleated Red Blood Cells % (auto) 0.0, Erythrocyte Sedimentation Rate 46H, Anion Gap 9, Glomerular Filtration Rate > 60.0, Calcium Level 8.1L, Magnesium Level 2.1 CBC/BMP Laboratory Tests 01/03/20 17:53 01/03/20 17:54 01/04/20 07:55 Microbiology Microbiology 01/03/20 Blood Culture, Received Pending 01/03/20 Blood Culture, Received Pending TYREE CAPPS MD Jan 04, 2020 13:48
[2020-01-04] MEDS: amLODIPine 5 MG TAB PO SCH (20:23)
[2020-01-04] MEDS: ENOXAPARIN 80MG/0.8ML SYRINGE (J1650 PER 10MG) SC SCH (22:06)
[2020-01-04] MEDS: REMDESIVIR (INVESTIGATIONAL) 100 MG in NS 230 ML IV SCH (22:07)
[2020-01-04] MEDS: SODIUM CHLORIDE 0.9% INJ 10 ML SYR IV SCH (22:09)
--- NOTE | 2020-01-04 22:32 | REPVR ---
PROCEDURE INFORMATION: Exam: XR Chest, 1 View Exam date and time: 01/04/2020 10:22 PM Age: 69 years old Clinical indication: Other: Hypoxia TECHNIQUE: Imaging protocol: XR of the chest Views: 1 view. COMPARISON: [facility] PORTABLE CHEST X-RAY 01/03/2020 6:09 PM FINDINGS: Lungs: Unremarkable. No consolidation. Pleural space: Unremarkable. No pleural effusion. No pneumothorax. Heart/Mediastinum: Unremarkable. No cardiomegaly. Vasculature: Uncoiled thoracic aorta. Bones/joints: Dextroscoliosis and mild degenerative spondylosis. Other findings: Note that the film is mislabeled with respect to left versus right. IMPRESSION: No acute findings. Electronically signed by: Blue Sánchez On 01/04/2020 22:32:35 PM
[2020-01-04 22:35] LABS: NT-PRO BNP 237 PG/ML (<125)
[2020-01-05] VITALS (8 sets, daily range): BP systolic 103–152; BP diastolic 57–74; O2SAT 95–99
[2020-01-05] MEDS: ALBUTEROL 90 MCG/ACT 8GM HFA INHALER INH SCH ×4 (01:21→23:00)
--- NOTE | 2020-01-05 03:57 | IPNPDOC ---
Text Note Date of Service The patient was seen on 01/05/20. NOTE I was contacted at 212 by the patient's nurse to inform you that the patient had required more oxygen as her oxygen saturations had decreased to the 80s. Patient initially was placed from 4 L of nasal cannula to 6 L. Patient was having difficulty maintaining oxygen saturations above 92% and was switched to high flow nasal cannula at 7 L/m. I had spoken with the patient earlier in the evening and she said she was feeling better than the day prior when I had seen her in the emergency department for her admission. I had contacted the patient's son and the patient's earlier in the shift to let them know that her status had been unchanged from the night prior. Once the patient was requiring high flow oxygen at 7 L/m I had contacted Dr. Bradford, pulmonology, for any advice. Dr. Bradford advised to get a another d- dimer, BNP, pro-calcitonin, and repeat chest x-ray. D-dimer had decreased from 1606.25-1499.91. Patient's BNP had increased slightly from 113-237. Patient's chest x-ray did not show any acute infiltrates or viral pneumonia according to radiology read. Dr. Bradford who also recommended having the patient lay prone when she is awake or at least on her side to help with oxygenation. Patient was placed prone for 2 hours or as long she tolerated. I contacted the patient's son with a status update. Patient's son was asking about a possible CT angiogram for a possible PE. I advised the patient's son that we had started the patient on full dose Lovenox for full anticoagulation due to her acute worsening in that because her other vital signs were stable a CT angiogram of the chest would not change our management unless she continued to worsen. I did speak with nursing cellars supervisor about making sure the second CT machine in the hospital was available if we did need to do a CT angiogram. Patient's son was understanding of this. While the patient was lying prone, patient's oxygen saturations came up to 98- 100% on the 7 L in the oxygen rate was slowed down to 5 L/m and the patient maintained her oxygen saturations above 94%. There was an attempt to wean the patient down to 4 L however, the patient's oxygen saturations did drop on this and she was placed back on 5 L/m. I called the patient's son around midnight to give him the update that his mother was doing better and that I would call him before the end of shift to the update him on how she did overnight and I would call him if there was an acute worsening. VS,Dignae, I+O VS, Idrisbone, I+O Laboratory Tests 01/04/20 07:55 Vital Signs Date Time Temp Pulse Resp B/P (MAP) Pulse Ox O2 Delivery O2 Flow Rate FiO2 01/05/20 01:19 95 High Flow Cannula 5.0 01/04/20 23:37 97.8 81 18 130/61 (84) I&O- Last 24 Hours up to 6 AM 01/05/20 06:00 Intake Total 1570 ml Output Total 1250 ml Balance 320 ml MICHAELLE MADSEN DO Jan 05, 2020 03:57
[2020-01-05 07:25] LABS: BASO % 0.1 % (0.0-1.0); HEMATOCRIT 40.6 % (36.0-47.0); HEMOGLOBIN 12.8 g/dl (12.0-15.5); LYMPH # 1.8 10^3/uL (1.5-5.0); LYMPH % 15.5 % (24.0-44.0); MEAN CORPUSCULAR HEMOGLOBIN 27.5 pg (27.0-33.0); MEAN CORPUSCULAR HGB CONC 31.5 g/dl (32.0-36.5); MEAN CORPUSCULAR VOLUME 87.1 fl (80.0-96.0); MONO # 0.5 10^3/uL (0.0-0.8); MONO % 4.5 % (0.0-5.0); NEUTROPHILS % 78.6 % (36.0-66.0); PLATELET COUNT, AUTOMATED 328 10^3/uL (150-450); RED BLOOD COUNT 4.66 10^6/uL (4.00-5.40); WHITE BLOOD COUNT 11.4 10^3/uL (4.0-10.0)
[2020-01-05 07:36] LABS: INR 1.28; PROTHROMBIN TIME 16.3 SECONDS (12.5-14.3)
[2020-01-05 07:37] LABS: PARTIAL THROMBOPLASTIN TIME 45.6 SECONDS (24.2-38.5)
[2020-01-05 07:39] LABS: D-DIMER QUANT 1466.86 ng/ml (<500)
[2020-01-05 07:47] LABS: ALBUMIN 2.9 GM/DL (3.2-5.2); ALT/SGPT 57 U/L (12-78); BILIRUBIN,DIRECT 0.2 MG/DL (0.0-0.2); BILIRUBIN,TOTAL 0.3 MG/DL (0.2-1.0); BLOOD UREA NITROGEN 19 MG/DL (7-18); C REACTIVE PROTEIN QUANTITATIV 6.01 MG/DL (0.00-0.30); CARBON DIOXIDE LEVEL 28 MEQ/L (21-32); CHLORIDE LEVEL 104 MEQ/L (98-107); FERRITIN 263 NG/ML (8-252); GLOMERULAR FILTRATION RATE > 60.0 (>45); GLUCOSE, FASTING 158 MG/DL (70-100); MAGNESIUM LEVEL 2.3 MG/DL (1.8-2.4); NT-PRO BNP 499 PG/ML (<125); SODIUM LEVEL 139 MEQ/L (136-145); TOTAL PROTEIN 6.6 GM/DL (6.4-8.2)
[2020-01-05] MEDS: IRBESARTAN 150MG TAB PO SCH (08:06)
[2020-01-05] MEDS: SERTRALINE HCL 50 MG TAB PO SCH (08:58)
[2020-01-05] MEDS: ASPIRIN 81 MG ENTERIC TAB PO SCH (08:58)
[2020-01-05] MEDS: OMEPRAZOLE 20 MG CAP PO SCH (08:58)
[2020-01-05] MEDS: ACETAMINOPHEN TAB 650MG DOSE (2X325MG) PO PRN ×2 (08:59→20:57)
--- NOTE | 2020-01-05 09:48 | IPNPDOC ---
Date Seen The patient was seen on 01/05/20. Progress Note SUBJECTIVE: Patient was seen and examined at bedside this morning. Overnight patient's oxygen saturation decreased to 80s, and requirement increased to 7 L high flow NC. . Anticoagulation was increased after consultation with Dr. Bradford. She is currently now on full dose anticoagulation with Lovenox. She was proned overnight. Now she is encouraged to lie on her side or prone during the day if she becomes acutely hypoxic She is currently on high flow nasal cannula 5 L/m of oxygen supplementation. She is saturating at 94-95%. She does desaturate to 88-90% when admitting to the restroom. She is not tachycardic on exam. I discussed her progress with her son, Rinku [phone] as well as her Richard at [phone]. OBJECTIVE PHYSICAL EXAMINATION: VITAL SIGNS: please see below General: NAD, comfortable, high flow nasal cannula in place HEENT: PERRLA, EOMI, sclerae clear Neck: supple, normal ROM, no JVD Respiratory: lungs CTAB, no wheeze, no rales, no crackles CVS: RRR, normal S1, S2, no murmurs Abdo: soft, no masses, no hepatosplenomegaly, BS+, no rebound tenderness Extremities: no edema, pulses 2+ MSK: no joint deformities, normal ROM Neuro: no focal neuro deficits, moving all 4 extremities, CN2-12 intact. Strength 5/5 in all 4 extremities. No nystagmus. Psych: calm, cooperative, AAO x 3 LABORATORY DATA, IMAGING STUDIES, MICROBIOLOGY: Please see below. CXR 01/05/20 FINDINGS: Lungs: Unremarkable. No consolidation. Pleural space: Unremarkable. No pleural effusion. No pneumothorax. Heart/Mediastinum: Unremarkable. No cardiomegaly. Vasculature: Uncoiled thoracic aorta. Bones/joints: Dextroscoliosis and mild degenerative spondylosis. Other findings: Note that the film is mislabeled with respect to left versus right. IMPRESSION: No acute findings DVT prophylaxis ordered?: Yes, full dose of the coagulation Lovenox ASSESSMENT AND PLAN: 69-year-old female with a history of hypertension, depression, GERD, asthma, admitted for desaturation, diagnosed with Covid on 12/26/19. Patient required HF NC 7LPM overnight 01/05/20, required proning. Advanced to full dose anticoagulation. PROBLEMS: 1. Covid 19: SpO2 at 94-95% on 5L high flow NC. Solu-Medrol 40 mg q12h as well as remdesivir. Venous duplex of bilateral lower extremities did not show DVT. Gi yandel increase in O2 requirement, advanced to full-dose anticoagulation with lovenox. Venous dupplex negative. Monitor daily labs. LDH 259. D-dimer 1600 -> 1466. Fibronogen 616 ->505. CRp trending down. ESR 46. Trop <0.02 x 3. 2. Hypertension. Hold meds for borderline low BP. Irbesartan 300 mg PO daily. Amlodipine 5 mg qhs. 3. Asthma: Continue home inhalers Her. GERD. Continue pantoprazole 5. Depression. Continue home meds 6. RLS: ropinirole 0.25 mg qhs DVT prophylaxis: Patient is receiving 1 mg/kg of Lovenox every 12 hours VS, I&O, 24H, [facility] Vital Signs/I&O Vital Signs Date Time Temp Pulse Resp B/P (MAP) Pulse Ox O2 Delivery O2 Flow Rate FiO2 01/05/20 08:07 95 High Flow Cannula 5.0 01/05/20 08:06 103/57 01/05/20 08:00 97.8 86 22 I&O- Last 24 Hours up to 6 AM 01/05/20 06:00 Intake Total 1630 ml Output Total 1250 ml Balance 380 ml Laboratory Data 24H LABS Laboratory Tests 2 01/04/20 20:01: Troponin I < 0.02 01/04/20 21:59: D-Dimer, Quantitative 1499.91H, BP-Dnn-Z-Type Natriuretic Peptide 237H 01/05/20 06:57: Troponin I < 0.02, D-Dimer, Quantitative 1466.86H, UQ-Uyf-Q-Type Natriuretic Peptide 499H, Immature Granulocyte % (Auto) 1.3, Neutrophils (%) (Auto) 78.6H, Lymphocytes (%) (Auto) 15.5L, Monocytes (%) (Auto) 4.5, Eosinophils (%) (Auto) 0.0, Basophils (%) (Auto) 0.1, Neutrophils # (Auto) 9.0H, Lymphocytes # (Auto) 1.8, Monocytes # (Auto) 0.5, Eosinophils # (Auto) 0.0, Basophils # (Auto) 0.0, Nucleated Red Blood Cells % (auto) 0.0, Prothrombin Time 16.3H, Prothromb Time International Ratio 1.28, Activated Partial Thromboplast Time 45.6H, Fibrinogen 505H, Anion Gap 7L, Glomerular Filtration Rate > 60.0, Calcium Level 9.0, Magnesium Level 2.3, Ferritin 263H, Total Bilirubin 0.3, Direct Bilirubin 0.2, Aspartate Amino Transf (AST/SGOT) 36, Alanine Aminotransferase (ALT/SGPT) 57, Alkaline Phosphatase 112, C-Reactive Protein, Quantitative 6.01H, Total Protein 6.6, Albumin 2.9L, Albumin/Globulin Ratio 0.8L CBC/BMP Laboratory Tests 01/05/20 06:57 Microbiology Microbiology 01/03/20 Blood Culture - Preliminary, Resulted No growth after 24 hours . All specim... 01/03/20 Blood Culture - Preliminary, Resulted No growth after 24 hours . All specim... TYREE CAPPS MD Jan 05, 2020 09:48
[2020-01-05] MEDS: ENOXAPARIN 80MG/0.8ML SYRINGE (J1650 PER 10MG) SC SCH ×2 (10:37→22:32)
[2020-01-05] MEDS: methylPREDNISolone 40MG 1ML VIAL IV SCH ×2 (10:37→22:31)
[2020-01-05] MEDS: rOPINIRole 0.25 MG TAB(REQUIP) PO SCH (20:57)
[2020-01-05] MEDS: REMDESIVIR (INVESTIGATIONAL) 100 MG in NS 230 ML IV SCH (22:31)
[2020-01-05] MEDS: SODIUM CHLORIDE 0.9% INJ 10 ML SYR IV SCH (22:32)
[2020-01-06] VITALS (7 sets, daily range): BP systolic 128–153; BP diastolic 60–74; O2SAT 93–96
[2020-01-06] MEDS: ALBUTEROL 90 MCG/ACT 8GM HFA INHALER INH SCH ×4 (01:00→19:52)
[2020-01-06 08:11] LABS: BASO % 0.2 % (0.0-1.0); HEMATOCRIT 39.9 % (36.0-47.0); HEMOGLOBIN 12.6 g/dl (12.0-15.5); LYMPH # 2.1 10^3/uL (1.5-5.0); LYMPH % 15.8 % (24.0-44.0); MEAN CORPUSCULAR HEMOGLOBIN 27.6 pg (27.0-33.0); MEAN CORPUSCULAR HGB CONC 31.6 g/dl (32.0-36.5); MEAN CORPUSCULAR VOLUME 87.3 fl (80.0-96.0); MONO # 0.6 10^3/uL (0.0-0.8); MONO % 4.5 % (0.0-5.0); NEUTROPHILS # 10.4 10^3/uL (1.5-8.5); NEUTROPHILS % 77.6 % (36.0-66.0); PLATELET COUNT, AUTOMATED 371 10^3/uL (150-450); RED BLOOD COUNT 4.57 10^6/uL (4.00-5.40); WHITE BLOOD COUNT 13.4 10^3/uL (4.0-10.0)
[2020-01-06] MEDS: ASPIRIN 81 MG ENTERIC TAB PO SCH (08:37)
[2020-01-06] MEDS: OMEPRAZOLE 20 MG CAP PO SCH (08:37)
[2020-01-06] MEDS: SERTRALINE HCL 50 MG TAB PO SCH (08:37)
[2020-01-06 08:38] LABS: ALBUMIN 2.9 GM/DL (3.2-5.2); ALT/SGPT 43 U/L (12-78); BILIRUBIN,DIRECT < 0.1 MG/DL (0.0-0.2); BILIRUBIN,TOTAL 0.3 MG/DL (0.2-1.0); BLOOD UREA NITROGEN 23 MG/DL (7-18); C REACTIVE PROTEIN QUANTITATIV 2.55 MG/DL (0.00-0.30); CALCIUM LEVEL 8.7 MG/DL (8.8-10.2); CARBON DIOXIDE LEVEL 28 MEQ/L (21-32); CHLORIDE LEVEL 105 MEQ/L (98-107); CREATININE FOR GFR 0.79 MG/DL (0.55-1.30); FERRITIN 218 NG/ML (8-252); GLOMERULAR FILTRATION RATE > 60.0 (>45); GLUCOSE, FASTING 151 MG/DL (70-100); INR 1.53; MAGNESIUM LEVEL 2.2 MG/DL (1.8-2.4); NT-PRO BNP 1099 PG/ML (<125); PROTHROMBIN TIME 18.7 SECONDS (12.5-14.3); SODIUM LEVEL 139 MEQ/L (136-145); TOTAL PROTEIN 6.1 GM/DL (6.4-8.2)
[2020-01-06 08:39] LABS: PARTIAL THROMBOPLASTIN TIME 43.9 SECONDS (24.2-38.5)
[2020-01-06 08:41] LABS: D-DIMER QUANT 1350.39 ng/ml (<500)
[2020-01-06] MEDS: IRBESARTAN 150MG TAB PO SCH (09:00)
[2020-01-06] MEDS: methylPREDNISolone 40MG 1ML VIAL IV SCH ×2 (10:34→23:16)
[2020-01-06] MEDS: ENOXAPARIN 80MG/0.8ML SYRINGE (J1650 PER 10MG) SC SCH ×2 (10:35→23:16)
--- NOTE | 2020-01-06 12:25 | IPNPDOC ---
Date Seen The patient was seen on 01/06/20. Progress Note SUBJECTIVE: Patient's oxygen requirement decreased this morning. She is now saturating 94% on 1 L of oxygen per minute. She is not tachycardic, tachypneic. Vital signs are stable and she is afebrile. She does desaturate below 90 on ambulation as well as removal of oxygen. I discussed her progress with her son, Rinku [phone] as well as her Richard at [phone]. OBJECTIVE PHYSICAL EXAMINATION: VITAL SIGNS: please see below Patient is doing well. Patient O2 requirement has decreased. Patient was not auscultated today to reduce risk of Covid transmission. LABORATORY DATA, IMAGING STUDIES, MICROBIOLOGY: Please see below. CXR 01/05/20 FINDINGS: Lungs: Unremarkable. No consolidation. Pleural space: Unremarkable. No pleural effusion. No pneumothorax. Heart/Mediastinum: Unremarkable. No cardiomegaly. Vasculature: Uncoiled thoracic aorta. Bones/joints: Dextroscoliosis and mild degenerative spondylosis. Other findings: Note that the film is mislabeled with respect to left versus right. IMPRESSION: No acute findings DVT prophylaxis ordered?: Yes, full dose of the coagulation Lovenox ASSESSMENT AND PLAN: 69-year-old female with a history of hypertension, de pression, GERD, asthma, admitted for desaturation, diagnosed with Covid on 12/26/19. Patient required HF NC 7LPM overnight 01/05/20, required proning. Advanced to full dose anticoagulation. Patient's oxygenation improved significantly, requiring 1 L. 2. Saturated 94%. However, she does desaturate bel ow 90% on ambulation. PROBLEMS: 1. Acute hypoxic respiratory failure 2/2 covid-19 infection SpO2 at 94-95% on 5L high flow NC. Solu-Medrol 40 mg q12h as well as remdesivir. Venous duplex of bilateral lower extremities did not show DVT. Given increase in O2 requirement, advanced to full-dose anticoagulation with lovenox. Venous dupplex negative. Monitor daily labs. LDH 259. D-dimer 1600 -> 1466. Fibronogen 616 ->505-> 445. CRP trending down. ESR 46. Trop <0.02 x 3. 2. Hypertension. BP normalized, resume home meds. Irbesartan 300 mg PO daily. Amlodipine 5 mg qhs. 3. Asthma: Continue home inhalers Her. GERD. Continue pantoprazole 5. Depression. Continue home meds 6. RLS: ropinirole 0.25 mg qhs DVT prophylaxis: Patient is receiving 1 mg/kg of Lovenox every 12 hours Dispo: The patient to [facility] status on telemetry, down from PCU status today. VS, I&O, 24H, [facility] Vital Signs/I&O Vital Signs Date Time Temp Pulse Resp B/P (MAP) Pulse Ox O2 Delivery O2 Flow Rate FiO2 01/06/20 09:24 94 Nasal Cannula 1.0 01/06/20 09:00 128/60 01/06/20 08:00 96.6 71 18 I&O- Last 24 Hours up to 6 AM 01/06/20 06:00 Intake Total 930 ml Output Total 750 ml Balance 180 ml Laboratory Data 24H LABS Laboratory Tests 2 01/06/20 07:30: Immature Granulocyte % (Auto) 1.9, Neutrophils (%) (Auto) 77.6H, Lymphocytes (%) (Auto) 15.8L, Monocytes (%) (Auto) 4.5, Eosinophils (%) (Auto) 0.0, Basophils (%) (Auto) 0.2, Neutrophils # (Auto) 10.4H, Lymphocytes # (Auto) 2.1, Monocytes # (Auto) 0.6, Eosinophils # (Auto) 0.0, Basophils # (Auto) 0.0, Nucleated Red Blood Cells % (auto) 0.0, Prothrombin Time 18.7H, Prothromb Time International Ratio 1.53, Activated Partial Thromboplast Time 43.9H, Fibrinogen 445, D-Dimer, Quantitative 1350.39H, Anion Gap 6L, Glomerular Filtration Rate > 60.0, Calcium Level 8.7L, Magnesium Level 2.2, Ferritin 218, Total Bilirubin 0.3, Direct Bilirubin < 0.1, Aspartate Amino Transf (AST/SGOT) 21, Alanine Aminotransferase (ALT/SGPT) 43, Alkaline Phosphatase 95, C-Reactive Protein, Quantitative 2.55H, MB-Lek-N-Type Natriuretic Peptide 1099H, Total Protein 6.1L, Albumin 2.9L, Albumin/Globulin Ratio 0.9L CBC/BMP Laboratory Tests 01/06/20 07:30 Microbiology Microbiology 01/03/20 Blood Culture - Preliminary, Resulted No Growth after 48 hours. All Specime... 01/03/20 Blood Culture - Preliminary, Resulted No Growth after 48 hours. All Specime... TYREE CAPPS MD Jan 06, 2020 12:25
[2020-01-06] MEDS: SYMBICORT 80/4.5MCG INHALER 6GM INH SCH (19:52)
[2020-01-06] MEDS: rOPINIRole 0.25 MG TAB(REQUIP) PO SCH (21:02)
[2020-01-06] MEDS: ACETAMINOPHEN TAB 650MG DOSE (2X325MG) PO PRN (21:02)
[2020-01-06] MEDS: amLODIPine 5 MG TAB PO SCH (21:03)
[2020-01-06] MEDS: REMDESIVIR (INVESTIGATIONAL) 100 MG in NS 230 ML IV SCH (23:16)
[2020-01-06] MEDS: SODIUM CHLORIDE 0.9% INJ 10 ML SYR IV SCH (23:17)
[2020-01-07] VITALS: O2SAT 97
[2020-01-07] MEDS: ALBUTEROL 90 MCG/ACT 8GM HFA INHALER INH SCH ×3 (02:00→14:32)
[2020-01-07 04:00] VITALS: O2SAT 94
[2020-01-07 06:00] VITALS: BP 144/65
[2020-01-07 07:41] LABS: HEMATOCRIT 40.3 % (36.0-47.0); HEMOGLOBIN 12.7 g/dl (12.0-15.5); MEAN CORPUSCULAR HEMOGLOBIN 27.5 pg (27.0-33.0); MEAN CORPUSCULAR HGB CONC 31.5 g/dl (32.0-36.5); MEAN CORPUSCULAR VOLUME 87.2 fl (80.0-96.0); PLATELET COUNT, AUTOMATED 371 10^3/uL (150-450); RED BLOOD COUNT 4.62 10^6/uL (4.00-5.40); WHITE BLOOD COUNT 11.4 10^3/uL (4.0-10.0)
[2020-01-07 07:51] LABS: INR 1.42; PROTHROMBIN TIME 17.7 SECONDS (12.5-14.3)
[2020-01-07 07:54] LABS: D-DIMER QUANT 1381.4 ng/ml (<500)
[2020-01-07 08:00] VITALS: O2SAT 94
[2020-01-07 08:11] LABS: ATYPICAL LYMPH 3 % (0-5); LYMPHOCYTES 14 % (16-44); NEUTROPHILS 83 % (28-66)
[2020-01-07 08:12] LABS: ALBUMIN 2.9 GM/DL (3.2-5.2); ALT/SGPT 41 U/L (12-78); BILIRUBIN,DIRECT < 0.1 MG/DL (0.0-0.2); BILIRUBIN,TOTAL 0.3 MG/DL (0.2-1.0); BLOOD UREA NITROGEN 20 MG/DL (7-18); C REACTIVE PROTEIN QUANTITATIV 1.57 MG/DL (0.00-0.30); CALCIUM LEVEL 8.7 MG/DL (8.8-10.2); CARBON DIOXIDE LEVEL 29 MEQ/L (21-32); CHLORIDE LEVEL 105 MEQ/L (98-107); CREATININE FOR GFR 0.77 MG/DL (0.55-1.30); FERRITIN 201 NG/ML (8-252); GLOMERULAR FILTRATION RATE > 60.0 (>45); GLUCOSE, FASTING 170 MG/DL (70-100); MAGNESIUM LEVEL 2.3 MG/DL (1.8-2.4); NT-PRO BNP 818 PG/ML (<125); POTASSIUM SERUM 3.9 MEQ/L (3.5-5.1); SODIUM LEVEL 139 MEQ/L (136-145); TOTAL PROTEIN 6.1 GM/DL (6.4-8.2)
[2020-01-07 08:12] LABS: PLATELET ESTIMATE NORMAL (NORMAL)
[2020-01-07] MEDS: SYMBICORT 80/4.5MCG INHALER 6GM INH SCH (09:02)
[2020-01-07] MEDS: ASPIRIN 81 MG ENTERIC TAB PO SCH (09:46)
[2020-01-07] MEDS: methylPREDNISolone 40MG 1ML VIAL IV SCH (09:46)
[2020-01-07] MEDS: OMEPRAZOLE 20 MG CAP PO SCH (09:46)
[2020-01-07 09:47] VITALS: BP 131/74
[2020-01-07] MEDS: SERTRALINE HCL 50 MG TAB PO SCH (09:47)
[2020-01-07] MEDS: IRBESARTAN 150MG TAB PO SCH (09:47)
[2020-01-07] MEDS: ENOXAPARIN 80MG/0.8ML SYRINGE (J1650 PER 10MG) SC SCH (09:48)
[2020-01-07] MEDS ORDERED: SYMB80INH INH (10:45)
[2020-01-07] MEDS ORDERED: ASPI81TAEC PO (10:45)
[2020-01-07] MEDS ORDERED: ALBU8.5H INH (10:45)
[2020-01-07] MEDS ORDERED: PRED50TA PO (10:45)
[2020-01-07] MEDS ORDERED: LOVE0.6I2 SC (10:45)
--- NOTE | 2020-01-07 12:27 | DS.PDOC ---
Discharge Summary General Date of Admission Jan 03, 2020 at 20:27 Date of Discharge 01/07/2020 Discharge Summary PROCEDURES PERFORMED DURING STAY: [None]. ADMITTING DIAGNOSES: 1. DYSPNEA DISCHARGE DIAGNOSES: 1. COVID 19 infection COMPLICATIONS/CHIEF COMPLAINT: Dyspnea HISTORY OF PRESENT ILLNESS: from admitting H&Pl; Patient is a 69-year-old female who presented to the emergency department earlier today after monitoring her oxygen saturations at home and finding them to be in the mid 80s. Patient was diagnosed with Covid 19 back on 12/26/2019. Since then, she has been experiencing some difficulty breathing with exertion, low-grade fevers, body aches, and diarrhea. Patient states that she has been monitoring her oxygen and during the day today, it dropped into the mid 80s which prompted her to come in the emergency department. While in the emergency room, patient's oxygen saturations on room air were greater than 95%. When ambulated, patient's O2 saturation dropped into the 80s and she was subsequently placed on low-flow oxygen with nasal cannula. Patient says she still feels achy and very tired but is otherwise doing okay. She's had a dry cough that has been nonproductive. Patient's was also diagnosed with Covid 19 around the same time but he has not had any issues with the virus. HOSPITAL COURSE: 69-year-old female with a history of hypertension, depression, GERD, asthma, admitted for desaturation, diagnosed with Covid on 12/26/19. Patient required HF NC 7LPM overnight 01/05/20, required proning. Advanced to full dose anticoagulation. Patient's oxygenation improved significantly, requiring 1 L up until yesteday and then today on day on discharge she did not require oxygen at rest of on ambulation saturating >88% at all times. 1. Acute hypoxic respiratory failure 2/2 covid-19 infection SpO2 at 94-95% on 5L high flow NC on presentation. Solu-Medrol 40 mg q12h as well as remdesivir. Venous duplex of bilateral lower extremities did not show DVT. Given increase in O2 requirement, advanced to full-dose anticoagulation with lovenox which was discussed with Dr Bradford and will discahrge her home on a 3 month course of Lovenox. COVID inflammatory markers decreased with time. Will be sent home on a 5 day course of prednisone as well as albuterol inhaler as needed and was asked to quarantine per CDC recommendations which was discussed with patient. 2. Hypertension. BP normalized, resume home meds. Irbesartan 300 mg PO daily. Amlodipine 5 mg qhs. 3. Asthma: Continue home inhalers 4. GERD. Continue pantoprazole 5. Depression. Continue home meds 6. RLS: ropinirole 0.25 mg qhs DISCHARGE MEDICATIONS: Please see below. ALLERGIES: Please see below. PHYSICAL EXAMINATION ON DISCHARGE: VITAL SIGNS: Please see below. Constitutional: Awake and alert, in no apparent distress eating breakfast at bedside ENT: Sclera are clear. Respiratory: Lungs CTA bilaterally. No respiratory distress. No use of accessory muscles. On room air. Cardiovascular: Heart rate is regular Gastrointestinal: Abdomen is soft, non distended, non tender Musculoskeletal: No lower or upper extremity edema Neurologic: No focal neurological deficit. Mental Status: A&O x3, normal affect Skin: Warm, dry LABORATORY DATA: Please see below. IMAGING: Exam: US Duplex Lower Extremity Veins, Bilateral Exam date and time: 01/03/2020 11:20 PM No evidence of lower extremity deep vein thrombosis. PROGNOSIS: fair ACTIVITY: [As tolerated]. DIET: regular DISCHARGE PLAN: home DISCHARGE INSTRUCTIONS: Please follow up with your primary care physician within 1 week from discharge. If you do not have one, please follow up with us to schedule an appointment. Please keep all of your follow up appointments. Please call central to book your appointments with hospital specialists. Please take all your medications as prescribed. Please call/come to Clinic or go to the Emergency Department if - Temp >101, intractable Nausea/Vomiting, Diarrhea, Mouth sores, Headaches, Altered mental status, Seizures, sudden onset of swelling, bleeding, shortness of breath or chest pain. Quarantine per CDC recommendations which was discussed with patient ITEMS TO FOLLOWUP ON ON OUTPATIENT: Follow-up with PCP 2 weeks after discharge DISCHARGE CONDITION: [Stable]. TIME SPENT ON DISCHARGE: Greater than 45 minutes. Vital Signs/I&Os Vital Signs Date Time Temp Pulse Resp B/P (MAP) Pulse Ox O2 Delivery O2 Flow Rate FiO2 01/07/20 09:47 131/74 01/07/20 06:00 97.4 73 20 97 Nasal Cannula 2.0 I&O- Last 24 Hours up to 6 AM 01/07/20 05:59 Intake Total 930 ml Output Total 1300 ml Balance -370 ml Laboratory Data Labs 24H Laboratory Tests 2 01/07/20 07:00: Immature Granulocyte % (Auto) , Neutrophils (%) (Auto) , Nucleated Red Blood Cells % (auto) 0.0, Neutrophils 83H, Lymphocytes (Manual) 14L, Atypical Lymphocytes 3, Red Blood Cell Morphology NORMAL, Platelet Estimate NORMAL 01/07/20 07:01: Prothrombin Time 17.7H, Prothromb Time International Ratio 1.42, Activated Partial Thromboplast Time 44.0H, Fibrinogen 372, D-Dimer, Quantitative 1381.40H, Anion Gap 5L, Glomerular Filtration Rate > 60.0, Calcium Level 8.7L, Magnesium Level 2.3, Ferritin 201, Total Bilirubin 0.3, Direct Bilirubin < 0.1, Aspartate Amino Transf (AST/SGOT) 17, Alanine Aminotransferase (ALT/SGPT) 41, Alkaline Phosphatase 88, C-Reactive Protein, Quantitative 1.57H, RS-Mqj-G-Type Natriuretic Peptide 818H, Total Protein 6.1L, Albumin 2.9L, Albumin/Globulin Ratio 0.9L, Procalcitonin <0.05 CBC/BMP Laboratory Tests 01/07/20 07:00 01/07/20 07:01 Microbiology Microbiology 01/03/20 Blood Culture - Preliminary, Resulted No Growth after 72 hours. All specime... 01/03/20 Blood Culture - Preliminary, Resulted No Growth after 72 hours. All specime... Discharge Medications Scheduled Amlodipine Besylate (Amlodipine Besylate) 5 Mg Tablet, 5 MG PO QHS, (Reported) Aspirin (Aspirin EC) 81 Mg Tablet.dr, 81 MG PO DAILY Budesonide/Formoterol (Symbicort 80-4.5 Mcg Inhaler) 6.9 Gm Hfa.aer.ad, 2 PUFF INH RBID Celecoxib (Celecoxib) 200 Mg Capsule, 200 MG PO DAILY, (Reported) Enoxaparin Sodium (Lovenox) 80 Mg/0.8 Ml Syringe, 80 MG SC Q12H Fluticasone/Vilanterol (Breo Ellipta 100-25 Mcg INH) 1 Each Blst.w.dev, 1 PUFF INH DAILY, (Reported) Irbesartan (Irbesartan) 300 Mg Tablet, 300 MG PO DAILY, (Reported) Omeprazole (Omeprazole) 20 Mg Capsule.dr 20 MG PO DAILY, (Reported) Prednisone (Prednisone) 50 Mg Tablet, 50 MG PO DAILY Ropinirole HCl (Ropinirole HCl) 0.25 Mg Tablet, 0.25 MG PO QHS, (Reported) Sertraline HCl (Sertraline HCl) 50 Mg Tablet, 50 MG PO DAILY, (Reported) Scheduled PRN Acetaminophen (Acetaminophen) 500 Mg Tablet, 1,000 MG PO Q6H PRN for PAIN OR FEVER, (Reported) Albuterol Sulfate (Albuterol Sulfate Hfa) 8.5 Gm Hfa.aer.ad, 2 PUFF INH Q4H PRN for SOB/WHEEZING Meclizine HCl (Meclizine HCl) 25 Mg Tablet, 25 MG PO TID PRN for NAUSEA OR VOMITING, (Reported) Allergies Coded Allergies: No Known Allergies (Unverified , 11/22/19) KAYLA DURAN MD Jan 07, 2020 12:27
[2020-01-07] MEDS: REMDESIVIR (INVESTIGATIONAL) 100 MG in NS 230 ML IV SCH (13:48)
[2020-01-07 14:00] VITALS: BP 149/80
== END 2020-01-07 17:00 | disposition home health service (06) | DRG 177 ==
LOC: M ED 17:10 → EEVIPCON 20:27 → M ED INP 20:27 → ENRESERV 21:22 → M 4MAIN 01-04 01:45
PROVIDERS: ADMIT General Practice; ATTEND Family Medicine
DX: U07.1 COVID-19 (principal); J96.01 Acute respiratory failure with hypoxia; I10 Essential (primary) hypertension; F32.9 Major depressive disorder, single episode, unspecified; K21.9 Gastro-esophageal reflux disease without esophagitis; G25.81 Restless legs syndrome; J45.909 Unspecified asthma, uncomplicated; Z79.899 Other long term (current) drug therapy; Z79.82 Long term (current) use of aspirin; Z85.828 Personal history of other malignant neoplasm of skin; Z96.643 Presence of artificial hip joint, bilateral

== ENCOUNTER 2020-01-17 14:32 | Inpatient (IN) | payer MEDICARE, BC, OTHER ==
[~2020-01-17] VITALS: Ht 165.1 cm; Wt 82.3 kg
[~2020-01-17 14:32] MED LIST changes: +ACET-683 PO; +ASPI81TAEC PO; +LOVE0.6I2 SC; +PRED50TA PO; +SYMB80INH INH
[2020-01-17] MEDS ORDERED: ENOX80IN3 SQ (14:58)
[2020-01-17] MEDS ORDERED: ASPI81TA33 PO (14:58)
[2020-01-17 15:53] LABS: BASO % 0.3 % (0.0-1.0); EOS # 0.2 10^3/uL (0.0-0.5); EOS % 1.2 % (0.0-3.0); HEMATOCRIT 35.6 % (36.0-47.0); HEMOGLOBIN 11.2 g/dl (12.0-15.5); LYMPH # 2.2 10^3/uL (1.5-5.0); LYMPH % 16.6 % (24.0-44.0); MEAN CORPUSCULAR HEMOGLOBIN 27.5 pg (27.0-33.0); MEAN CORPUSCULAR HGB CONC 31.5 g/dl (32.0-36.5); MEAN CORPUSCULAR VOLUME 87.5 fl (80.0-96.0); MONO # 1.4 10^3/uL (0.0-0.8); MONO % 10.6 % (0.0-5.0); NEUTROPHILS # 9.3 10^3/uL (1.5-8.5); PLATELET COUNT, AUTOMATED 243 10^3/uL (150-450); RED BLOOD COUNT 4.07 10^6/uL (4.00-5.40); WHITE BLOOD COUNT 13.3 10^3/uL (4.0-10.0)
--- NOTE | 2020-01-17 15:56 | REP ---
INDICATION: fever COMPARISON: 01/04/2020 TECHNIQUE: Portable AP view of the chest FINDINGS: The mediastinum and cardiac silhouette are stable and within normal limits for portable technique. Bilateral interstitial infiltrates are appreciated (right greater than left). Underlying chronic changes remains stable. IMPRESSION: Bilateral interstitial infiltrates suspected. <Electronically signed by James Alvarez > 01/17/20 [id number]
[2020-01-17 16:04] LABS: INR 1.2; PROTHROMBIN TIME 15.5 SECONDS (12.5-14.3)
[2020-01-17 16:06] LABS: PARTIAL THROMBOPLASTIN TIME 56.9 SECONDS (24.2-38.5)
[2020-01-17 16:08] LABS: D-DIMER QUANT 1239.53 ng/ml (<500)
[2020-01-17 16:19] LABS: ALBUMIN 2.7 GM/DL (3.2-5.2); ALT/SGPT 91 U/L (12-78); BILIRUBIN,TOTAL 1.2 MG/DL (0.2-1.0); BLOOD UREA NITROGEN 9 MG/DL (7-18); CALCIUM LEVEL 8.3 MG/DL (8.8-10.2); CARBON DIOXIDE LEVEL 27 MEQ/L (21-32); CHLORIDE LEVEL 103 MEQ/L (98-107); CREATININE FOR GFR 0.81 MG/DL (0.55-1.30); FERRITIN 420 NG/ML (8-252); GLOMERULAR FILTRATION RATE > 60.0 (>45); GLUCOSE, FASTING 106 MG/DL (70-100); LDH LACTATE DEHYDROGENASE 205 U/L (84-246); POTASSIUM SERUM 3.9 MEQ/L (3.5-5.1); SODIUM LEVEL 135 MEQ/L (136-145); TOTAL PROTEIN 5.8 GM/DL (6.4-8.2)
[2020-01-17] MEDS ORDERED: cefTRIAXone SOD 1 GM in D5W MINI-BAG PLUS 50 ML IV ONE (17:15)
[2020-01-17] MEDS ORDERED: AZITHROMYCIN INJ 500 MG, VIAL MATE ADAPTER 1 EACH in D5W 250 ML IV ONE (17:15)
[2020-01-17] MEDS ORDERED: ALBUTEROL 90 MCG/ACT 8GM HFA INHALER INH PRN (17:30)
[2020-01-17] MEDS ORDERED: VENTAER INH (17:35)
--- NOTE | 2020-01-17 18:10 | HPEPDOC ---
[facility] Medical History & Physical Date of Admission Jan 17, 2020 Date of Service: Jan 17, 2020 History and Physical CHIEF COMPLAINT: Fever 102.2 this morning HISTORY OF PRESENT ILLNESS: 69-year-old female diagnosed with Covid entreated as an inpatient from from January 02 to January 06 with from this severe and Solu-Medrol was discharged home, 97% on room air, which turns to the emergency room today because of recurr ent fevers at home for the past 4 days, highest was 102.2. Height taken 2 tablets of Tylenol today. She denies any cough, shortness of breath, pleuritic chest pain, nausea, vomiting, headaches, diarrhea, abdominal pain, dysuria, urgency, frequency, chills, flank pain. Patient says that her taste has improved since she's been released from the hospital. She's had no other sick contacts. In the ER she was found to have bilateral infiltrates on chest x-ray, afebrile with white count of 13 and elevated serum inflammatory markers. Hospitalist was asked to admit the patient for possible secondary bacterial infection and due to recent hospitalization and is now being admitted for healthcare associated pneumonia. Patient is saturating 97% on room air and has no wheezing on examination. PAST MEDICAL HISTORY: Covid 19. Pneumonia treated as an inpatient January 02 to January 06 requiring prone positioning from this severe and Solu-Medrol, hypertension, reflux, depression, restless legs, skin cancer on the left side of the nose. Asthma PAST SURGICAL HISTORY: , Bilateral total hip arthroplasty, cholecystectomy, right rotator cuff repair, total hysterectomy, skin cancer resection SOCIAL HISTORY: Denies cigarettes, recreational drug use, alcohol use. Retired FAMILY HISTORY: , Hypertension. Mother and father are ALLERGIES: Please see below. REVIEW OF SYSTEMS: Per HPI. 10 point system otherwise negative HOME MEDICATIONS: Please see below. PHYSICAL EXAMINATION: VITAL SIGNS: See below GENERAL APPEARANCE: No respiratory distress. Awake, alert, oriented 3 HEENT: No nasal flaring, no JVD or thyromegaly. No stridor. Neck is supple, full range of motion. No cervical lymphadenopathy CARDIOVASCULAR: S1, S2, sinus rhythm, regular rate rhythm, no murmurs, rubs or gallops LUNGS: Diminished breath sounds, bibasilar crackles, no wheezing. Air entry is equal. No nasal flaring or tracheal deviation. No conversational dyspnea. Able to speak in full sentences ABDOMEN: Positive bowel sounds, soft, nontender, nondistended. No hepatosplenomegaly. No abdominal bruit EXTREMITIES: No cyanosis, clubbing or pitting edema LABORATORY DATA: See below. IMAGING: INDICATION: fever COMPARISON: 01/04/2020 TECHNIQUE: Portable AP view of the chest FINDINGS: The mediastinum and cardiac silhouette are stable and within normal limits for portable technique. Bilateral interstitial infiltrates are appreciated (right greater than left). Underlying chronic changes remains stable. IMPRESSION: Bilateral interstitial infiltrates suspected. <Electronically signed by James Alvarez > 01/17/20 [id number] MICROBIOLOGY: Please see below. ASSESSMENT: .69-year-old female diagnosed with Covid entreated as an inpatient from from January 02 to January 06 with from this severe and Solu-Medrol was discharged home, 97% on room air, which turns to the emergency room today because of recurrent fevers at home for the past 4 days, highest was 102.2. Height taken 2 tablets of Tylenol today. She denies any cough, shortness of breath, pleuritic chest pain, nausea, vomiting, headaches, diarrhea, abdominal pain, dysuria, urgency, frequency, chills, flank pain. Patient says that her taste has improved since she's been released from the hospital. She's had no other sick contacts. In the ER she was found to have bilateral infiltrates on chest x-ray, afebrile with white count of 13 and elevated serum inflammatory markers. Hospitalist was asked to admit the patient for possible secondary bacterial infection and due to recent hospitalization and is now being admitted for healthcare associated pneumonia. Patient is saturating 97% on room air and has no wheezing on examination. Healthcare associated pneumonia Recent Covid pneumonia treated 01/03/2020 to 01/07/2020 , complicated by acute hypoxic respiratory failure requiring prone positioning hypertension, reflux, depression, restless legs, skin cancer on the left side of the nose. Asthma PLAN: Patient will be admitted as an inpatient for healthcare associated pneumonia and will be staying for at least 2 midnights. She has been started on vancomycin and cefepime. Her cough is dry and we are unable to obtain a sputum culture. We will check urine Legionella and urine streptococcal antigen and if positive, may de- escalate her antibiotics. Patient is not hypoxic. She will be continued on her home inhalers. Avoid nebulizer treatment. For now, continue with droplet precautions precautions. Follow infection control protocol. She is not requiring any supplemental oxygen and is saturating 97% on room air currently. We will continue all other home medications. She is a full code. Vital Signs Vital Signs Date Time Temp Pulse Resp B/P (MAP) Pulse Ox O2 Delivery O2 Flow Rate FiO2 01/17/20 15:53 01/17/20 14:36 98.4 104 20 97 Room Air Laboratory Data Labs 24H Laboratory Tests 2 01/17/20 15:26: Prothrombin Time 15.5H, Prothromb Time International Ratio 1.20, Activated Parti al Thromboplast Time 56.9H, Fibrinogen 707H, D-Dimer, Quantitative 1239.53H, Anion Gap 5L, Glomerular Filtration Rate > 60.0, Calcium Level 8.3L, Ferritin 420H, Total Bilirubin 1.2H, Aspartate Amino Transf (AST/SGOT) 66H, Alanine Aminotransferase (ALT/SGPT) 91H, Alkaline Phosphatase 90, Lactate Dehydrogenase 205, C-Reactive Protein, Quantitative 17.10H, Total Protein 5.8L, Albumin 2.7L, Albumin/Globulin Ratio 0.9L 01/17/20 15:27: Immature Granulocyte % (Auto) 1.3, Neutrophils (%) (Auto) 70.0H, Lymphocytes (%) (Auto) 16.6L, Monocytes (%) (Auto) 10.6H, Eosinophils (%) (Auto) 1.2, Basophils (%) (Auto) 0.3, Neutrophils # (Auto) 9.3H, Lymphocytes # (Auto) 2.2, Monocytes # (Auto) 1.4H, Eosinophils # (Auto) 0.2, Basophils # (Auto) 0.0, Nucleated Red Blood Cells % (auto) 0.0, Lactic Acid Level 1.3, Procalcitonin <0.05 CBC/BMP Laboratory Tests 01/17/20 15:26 01/17/20 15:27 Microbiology Microbiology 01/17/20 Blood Culture, Received Pending 01/17/20 Blood Culture, Received Pending Home Medications Scheduled Amlodipine Besylate (Amlodipine Besylate) 5 Mg Tablet, 5 MG PO QHS SYSTOLIC > 130 OR DIASTOLIC > 85 Aspirin (Aspirin EC) 81 Mg Tablet.dr, 81 MG PO DAILY Enoxaparin Sodium (Enoxaparin Sodium) 80 Mg/0.8 Ml Syringe, 80 MG SQ BID Irbesartan (Irbesartan) 300 Mg Tablet, 300 MG PO DAILY SYSTOLIC > 130 OR DIASTOLIC > 85 Omeprazole (Omeprazole) 20 Mg Capsule.dr, 20 MG PO DAILY Sertraline HCl (Sertraline HCl) 50 Mg Tablet, 50 MG PO DAILY Scheduled PRN Acetaminophen (Acetaminophen) 500 Mg Tablet, 1,000 MG PO Q6H PRN for PAIN OR FEVER Albuterol Sulfate (Ventolin Hfa) 18 Gm Hfa.aer.ad, 2 PUFFS INH QID PRN for SHORTNESS OF BREATH Fluticasone/Vilanterol (Breo Ellipta 100-25 Mcg INH) 1 Each Blst.w.dev, 1 PUFF INH DAILY PRN for SHORTNESS OF BREATH PATIENT STATES ONLY USING PRN Ropinirole HCl (Ropinirole HCl) 0.25 Mg Tablet, 0.25 MG PO QHS PRN for RESTLESS LEGS Allergies Coded Allergies: No Known Allergies (Unverified , 11/22/19) A-FIB/CHADSVASC A-FIB History Current/History of A-Fib/PAF?: No Current PO Anticoag Therapy: No Age/Risk Factor Scoring CHADSVASC: CHADSVASC Response (Comments) Value Age Risk Factor Age 65-74 years old 1 Gender Risk Factor Female 1 Hx of CHF No 0 Hx of HTN No 0 Hx of Stroke/TIA/or VTE No 0 Hx of Diabetes No 0 Hx of Vascular Disease No 0 Total 2 Treatment Treatment ordered: NONE JONO VIRGEN MD Jan 17, 2020 18:10
[2020-01-17] MEDS ORDERED: rOPINIRole 0.25 MG TAB(REQUIP) PO PRN (18:15)
[2020-01-17] MEDS: ALBUTEROL 90 MCG/ACT 8GM HFA INHALER INH SCH (19:58)
[2020-01-17] MEDS: LACTOBACILLUS ACIDOPHILUS CAP (BACID) PO SCH (20:22)
[2020-01-17] MEDS: amLODIPine 5 MG TAB PO SCH (20:22)
[2020-01-17 20:30] VITALS: BP 124/66
[2020-01-17] MEDS: ENOXAPARIN 80MG/0.8ML SYRINGE (J1650 PER 10MG) SQ SCH (21:59)
[2020-01-17] MEDS ORDERED: VANCOMYCIN HCL 1,000 MG, VIAL MATE ADAPTER 1 EACH in D5W 250 ML IV SCH (22:00)
[2020-01-17] MEDS ORDERED: HEPARIN SOD (PORCINE) 5000UNITS/ML 1ML VIAL/SYRINGE SC SCH (22:00)
[2020-01-17] MEDS ORDERED: VANCOMYCIN HCL 750 MG, VIAL MATE ADAPTER 1 EACH in D5W 250 ML IV ONE (23:00)
[2020-01-18 06:00] VITALS: BP 112/62
[2020-01-18 07:24] LABS: BASO % 0.3 % (0.0-1.0); EOS # 0.2 10^3/uL (0.0-0.5); EOS % 2.1 % (0.0-3.0); HEMOGLOBIN 9.8 g/dl (12.0-15.5); LYMPH # 1.6 10^3/uL (1.5-5.0); LYMPH % 16.9 % (24.0-44.0); MEAN CORPUSCULAR HEMOGLOBIN 27.2 pg (27.0-33.0); MEAN CORPUSCULAR HGB CONC 30.6 g/dl (32.0-36.5); MEAN CORPUSCULAR VOLUME 88.9 fl (80.0-96.0); MONO % 10.3 % (0.0-5.0); NEUTROPHILS # 6.7 10^3/uL (1.5-8.5); NEUTROPHILS % 69.5 % (36.0-66.0); PLATELET COUNT, AUTOMATED 225 10^3/uL (150-450); WHITE BLOOD COUNT 9.7 10^3/uL (4.0-10.0)
[2020-01-18 07:48] LABS: BLOOD UREA NITROGEN 9 MG/DL (7-18); CALCIUM LEVEL 8.1 MG/DL (8.8-10.2); CARBON DIOXIDE LEVEL 29 MEQ/L (21-32); CHLORIDE LEVEL 102 MEQ/L (98-107); CREATININE FOR GFR 0.71 MG/DL (0.55-1.30); GLOMERULAR FILTRATION RATE > 60.0 (>45); GLUCOSE, FASTING 103 MG/DL (70-100); POTASSIUM SERUM 3.7 MEQ/L (3.5-5.1); SODIUM LEVEL 136 MEQ/L (136-145)
[2020-01-18 08:00] VITALS: BP 108/72
[2020-01-18] MEDS: ALBUTEROL 90 MCG/ACT 8GM HFA INHALER INH SCH ×4 (08:22→20:29)
[2020-01-18] MEDS: SERTRALINE HCL 50 MG TAB PO SCH (08:43)
[2020-01-18] MEDS: LACTOBACILLUS ACIDOPHILUS CAP (BACID) PO SCH ×2 (08:43→17:06)
[2020-01-18] MEDS: ENOXAPARIN 80MG/0.8ML SYRINGE (J1650 PER 10MG) SQ SCH ×2 (08:43→20:12)
[2020-01-18] MEDS: ASPIRIN 81 MG ENTERIC TAB PO SCH (08:43)
[2020-01-18] MEDS: OMEPRAZOLE 20 MG CAP PO SCH (08:43)
[2020-01-18] MEDS: IRBESARTAN 150MG TAB PO SCH (08:45)
[2020-01-18] MEDS: CEFEPIME HCL 2 GM in D5W MINI-BAG PLUS 50 ML IV SCH ×3 (11:06→23:37)
--- NOTE | 2020-01-18 12:33 | IPNPDOC ---
Date Seen The patient was seen on 01/18/20. Progress Note S: no c/o sob, cp, n/v/d/headache/fever /chills/ cough productive of sputum O: PHYSICAL EXAMINATION: VITAL SIGNS: See below GEN: Awake, alert, oriented 3 HEENT: No nasal flaring, no JVD or thyromegaly. No stridor. Neck is supple CARDIOVASCULAR: S1, S2, sinus rhythm, regular rate rhythm, no murmurs, rubs or gallops LUNGS: Diminished breath sounds, bibasilar crackles, No conversational dyspnea. Able to speak in full sentences ABDOMEN: Positive bowel sounds, soft, nontender, nondistended. No abdominal bruit EXTREMITIES: No cyanosis, clubbing or pitting edema LABORATORY DATA: See below. IMAGING: INDICATION: fever COMPARISON: 01/04/2020 TECHNIQUE: Portable AP view of the chest FINDINGS: The mediastinum and cardiac silhouette are stable and within normal limits for portable technique. Bilateral interstitial infiltrates are appreciated (right greater than left). Underlying chronic changes remains stable. IMPRESSION: Bilateral interstitial infiltrates suspected. <Electronically signed by James Alvarez > 01/17/20 2126 MICROBIOLOGY: Please see below. ASSESSMENT: .69-year-old female diagnosed with Covid entreated as an inpatient from from January 02 to January 06 with from this severe and Solu-Medrol was discharged home, 97% on room air, which turns to the emergency room today because of recurrent fevers at home for the past 4 days, highest was 102.2. Height taken 2 tablets of Tylenol today. She denies any cough, shortness of breath, pleuritic chest pain, nausea, vomiting, headaches, diarrhea, abdominal pain, dysuria, urgency, frequency, chills, flank pain. Patient says that her taste has improved since she's been released from the hospital. She's had no other sick contacts. In the ER she was found to have bilateral infiltrates on chest x-ray, afebrile with white count of 13 and elevated serum inflammatory markers. Hospitalist was asked to admit the patient for possible secondary bacterial infection and due to recent hospitalization and is now being admitted for healthcare associated pneumonia. Patient is saturating 97% on room air and has no wheezing on examination. Healthcare associated pneumonia Recent Covid pneumonia treated 01/03/2020 to 01/07/2020 , complicated by acute hypoxic respiratory failure requiring prone positioning hypertension, reflux, depression, restless legs, skin cancer on the left side of the nose. Asthma PLAN: o2 sat 100% not needing o2, no cough unable to get sputum cx. continue iv abx. isolation. will need 7days iv abx unless urine strep or urine legionella positive. supportive care. resumed on home meds. no wheezing. VS, I&O, 24H, Fishbone Vital Signs/I&O Vital Signs Date Time Temp Pulse Resp B/P (MAP) Pulse Ox O2 Delivery O2 Flow Rate FiO2 01/18/20 12:01 99 Nasal Cannula 2.0 01/18/20 08:00 99.3 102 20 108/72 (84) I&O- Last 24 Hours up to 6 AM 01/18/20 06:00 Intake Total 1270 ml Output Total 300 ml Balance 970 ml Laboratory Data 24H LABS Laboratory Tests 2 01/17/20 15:26: Prothrombin Time 15.5H, Prothromb Time International Ratio 1.20, Activated Partial Thromboplast Time 56.9H, Fibrinogen 707H, D-Dimer, Quantitative 1239.53H, Anion Gap 5L, Glomerular Filtration Rate > 60.0, Calcium Level 8.3L, Ferritin 420H, Total Bilirubin 1.2H, Aspartate Amino Transf (AST/SGOT) 66H, Alanine Aminotransferase (ALT/SGPT) 91H, Alkaline Phosphatase 90, Lactate Dehydrogenase 205, C-Reactive Protein, Quantitative 17.10H, Total Protein 5.8L, Albumin 2.7L, Albumin/Globulin Ratio 0.9L 01/17/20 15:27: Immature Granulocyte % (Auto) 1.3, Neutrophils (%) (Auto) 70.0H, Lymphocytes (%) (Auto) 16.6L, Monocytes (%) (Auto) 10.6H, Eosinophils (%) (Auto) 1.2, Basophils (%) (Auto) 0.3, Neutrophils # (Auto) 9.3H, Lymphocytes # (Auto) 2.2, Monocytes # (Auto) 1.4H, Eosinophils # (Auto) 0.2, Basophils # (Auto) 0.0, Nucleated Red Blood Cells % (auto) 0.0, Urine Color STRAW, Urine Appearance CLEAR, Urine pH 7.0, Urine Specific [place] 1.002, Urine Protein NEGATIVE, Urine Glucose (UA) NEGATIVE, Urine Ketones NEGATIVE, Urine Blood NEGATIVE, Urine Nitrite NEGATIVE, Urine Bilirubin NEGATIVE, Urine Urobilinogen 0.2, Urine Leukocyte Esterase NEGATIVE, Urine WBC (Auto) 1, Urine RBC (Auto) 0, Urine Hyaline Casts (Auto) 0, Urine Bacteria (Auto) NEGATIVE, Urine Squamous Epithelial Cells 0, Urine Sperm (Auto) , Lactic Acid Level 1.3, Procalcitonin <0.05 01/17/20 19:44: 01/18/20 06:00: Methicillin-Resist S.aureus DNA PCR NOT DETECTED 01/18/20 06:54: Immature Granulocyte % (Auto) 0.9, Neutrophils (%) (Auto) 69.5H, Lymphocytes (%) (Auto) 16.9L, Monocytes (%) (Auto) 10.3H, Eosinophils (%) (Auto) 2.1, Basophils (%) (Auto) 0.3, Neutrophils # (Auto) 6.7, Lymphocytes # (Auto) 1.6, Monocytes # (Auto) 1.0H, Eosinophils # (Auto) 0.2, Basophils # (Auto) 0.0, Nucleated Red Blood Cells % (auto) 0.0, Anion Gap 5L, Glomerular Filtration Rate > 60.0, Calcium Level 8.1L CBC/BMP Laboratory Tests 01/17/20 15:26 01/17/20 15:27 01/18/20 06:54 Microbiology Microbiology 01/17/20 Blood Culture, Received Pending 01/17/20 Blood Culture, Received Pending JONO VIRGEN MD Jan 18, 2020 12:33
[2020-01-18 16:00] VITALS: BP 100/58
[2020-01-18 20:00] VITALS: BP 127/62
[2020-01-18] MEDS: amLODIPine 5 MG TAB PO SCH (20:03)
[2020-01-18] MEDS: ACETAMINOPHEN 500 MG TAB PO PRN (20:12)
[2020-01-19 05:39] VITALS: BP 127/70
[2020-01-19 07:22] LABS: BASO % 0.4 % (0.0-1.0); EOS # 0.3 10^3/uL (0.0-0.5); EOS % 3.6 % (0.0-3.0); HEMATOCRIT 33.2 % (36.0-47.0); HEMOGLOBIN 10.2 g/dl (12.0-15.5); LYMPH # 1.4 10^3/uL (1.5-5.0); LYMPH % 19.6 % (24.0-44.0); MEAN CORPUSCULAR HEMOGLOBIN 28.1 pg (27.0-33.0); MEAN CORPUSCULAR HGB CONC 30.7 g/dl (32.0-36.5); MEAN CORPUSCULAR VOLUME 91.5 fl (80.0-96.0); MONO # 0.8 10^3/uL (0.0-0.8); MONO % 10.9 % (0.0-5.0); NEUTROPHILS # 4.5 10^3/uL (1.5-8.5); NEUTROPHILS % 64.6 % (36.0-66.0); PLATELET COUNT, AUTOMATED 222 10^3/uL (150-450); RED BLOOD COUNT 3.63 10^6/uL (4.00-5.40)
--- NOTE | 2020-01-19 07:43 | IPNPDOC ---
Date Seen The patient was seen on 01/19/20. Progress Note SUBJECTIVE: noted to have 87%o2sat on room air yesterday. on o2 currently. no cough/ no CERVANTES, pleuritic cp/n/v/loss of taste/h/a/abd pain. PHYSICAL EXAMINATION: VITAL SIGNS: See below GENERAL APPEARANCE: no conversational dypsnea or use of resp acc mm. HEENT: No nasal flaring, no JVD or thyromegaly. No stridor. moist mm CARDIOVASCULAR: S1, S2, sinus rhythm, regular rate rhythm, no murmurs, rubs or gallops LUNGS: bibasilar crackles, no wheezing. ABDOMEN: Positive bowel sounds, soft, nontender, nondistended. No hepatosplenomegaly. No abdominal bruit EXTREMITIES: No cyanosis, clubbing or pitting edema LABORATORY DATA: See below. IMAGING: INDICATION: fever COMPARISON: 01/04/2020 TECHNIQUE: Portable AP view of the chest FINDINGS: The mediastinum and cardiac silhouette are stable and within normal limits for portable technique. Bilateral interstitial infiltrates are appreciated (right greater than left). Underlying chronic changes remains stable. IMPRESSION: Bilateral interstitial infiltrates suspected. <Electronically signed by James Alvarez > 01/17/20 1645 MICROBIOLOGY: Please see below. ASSESSMENT: .69-year-old female diagnosed with Covid entreated as an inpatient from from January 02 to January 06 with from this severe and Solu-Medrol was discharged home, 97% on room air, which turns to the emergency room today because of recurrent fevers at home for the past 4 days, highest was 102.2. Height taken 2 tablets of Tylenol today. She denies any cough, shortness of breath, pleuritic chest pain, nausea, vomiting, headaches, diarrhea, abdominal pain, dysuria, urgency, frequency, chills, flank pain. Patient says that her taste has improved since she's been released from the hospital. She's had no other sick contacts. In the ER she was found to have bilateral infiltrates on chest x-ray, afebrile with white count of 13 and elevated serum inflammatory markers. Hospitalist was asked to admit the patient for possible secondary bacterial infection and due to recent hospitalization and is now being admitted for healthcare associated pneumonia. Patient is saturating 97% on room air and has no wheezing on examination. Healthcare associated pneumonia acute hypoxic respiratory failure 87% room air Recent Covid pneumonia treated 01/03/2020 to 01/07/2020 , complicated by acute hypoxic respiratory failure requiring prone positioning hypertension, reflux, depression, restless legs, skin cancer on the left side of the nose. Asthma PLAN: due to hypoxia noted yesterday, recheck cxr, bnp. supplemental o2 to keep o2 sat>94%. no wheezing. continue broad spectrum gram neg coverage. no fevers. vanco discontinued due to negative mrsa. holding parameters on bp meds for sbp<120. ID and pulm consults if persistent hypoxia with o2 sat <88%, and if wheezing, treat for asthma exacerbation with iv solumedrol. continue lovenox 1mg/kg sq q12hrs for dvt and asa due to hypercoag state with covid. contact/droplet precautions per infection control. VS, I&O, 24H, Fishbone Vital Signs/I&O Vital Signs Date Time Temp Pulse Resp B/P (MAP) Pulse Ox O2 Delivery O2 Flow Rate FiO2 01/19/20 05:39 98.9 78 17 127/70 (89) 99 Nasal Cannula 2.0 I&O- Last 24 Hours up to 6 AM 01/19/20 06:00 Intake Total 1670 ml Output Total 2225 ml Balance -555 ml Laboratory Data 24H LABS Laboratory Tests 2 01/19/20 06:43: Immature Granulocyte % (Auto) 0.9, Neutrophils (%) (Auto) 64.6, Lymphocytes (%) (Auto) 19.6L, Monocytes (%) (Auto) 10.9H, Eosinophils (%) (Auto) 3.6H, Basophils (%) (Auto) 0.4, Neutrophils # (Auto) 4.5, Lymphocytes # (Auto) 1.4L, Monocytes # (Auto) 0.8, Eosinophils # (Auto) 0.3, Basophils # (Auto) 0.0, Nucleated Red Blood Cells % (auto) 0.0 CBC/BMP Laboratory Tests 01/19/20 06:43 Microbiology Microbiology 01/17/20 Blood Culture - Preliminary, Resulted No growth after 24 hours . All specim... 01/17/20 Blood Culture - Preliminary, Resulted No growth after 24 hours . All specim... JONO VIRGEN MD Jan 19, 2020 07:43
[2020-01-19 08:00] LABS: BLOOD UREA NITROGEN 10 MG/DL (7-18); CALCIUM LEVEL 8.6 MG/DL (8.8-10.2); CARBON DIOXIDE LEVEL 29 MEQ/L (21-32); CHLORIDE LEVEL 109 MEQ/L (98-107); CREATININE FOR GFR 0.77 MG/DL (0.55-1.30); GLOMERULAR FILTRATION RATE > 60.0 (>45); GLUCOSE, FASTING 108 MG/DL (70-100); NT-PRO BNP 187 PG/ML (<125); POTASSIUM SERUM 3.8 MEQ/L (3.5-5.1); SODIUM LEVEL 143 MEQ/L (136-145)
[2020-01-19] MEDS: ASPIRIN 81 MG ENTERIC TAB PO SCH (08:08)
[2020-01-19] MEDS: LACTOBACILLUS ACIDOPHILUS CAP (BACID) PO SCH ×2 (08:08→17:58)
[2020-01-19] MEDS: ENOXAPARIN 80MG/0.8ML SYRINGE (J1650 PER 10MG) SQ SCH ×2 (08:08→20:18)
[2020-01-19] MEDS: ALBUTEROL 90 MCG/ACT 8GM HFA INHALER INH SCH ×4 (08:09→20:31)
[2020-01-19] MEDS: OMEPRAZOLE 20 MG CAP PO SCH (08:09)
[2020-01-19] MEDS: SERTRALINE HCL 50 MG TAB PO SCH (08:09)
--- NOTE | 2020-01-19 08:24 | REP ---
INDICATION: hypoxia s/p covid now w bacterial pneumonia. COMPARISON: 01/17/2020 TECHNIQUE: Portable AP view of the chest FINDINGS: The mediastinum and cardiac silhouette are stable and within normal limits for portable technique. The lung king demonstrate bilateral airspace disease (left greater than right) which may be slightly increased from prior examination. No obvious effusion. No pneumothorax. Skeletal structures intact. IMPRESSION: Multifocal airspace disease (left greater than right) which may be slightly increased from prior examination. <Electronically signed by James Alvarez > 01/19/20 [id number]
[2020-01-19] MEDS: IRBESARTAN 150MG TAB PO SCH (08:54)
[2020-01-19] MEDS: CEFEPIME HCL 2 GM in D5W MINI-BAG PLUS 50 ML IV SCH ×3 (09:05→23:08)
[2020-01-19 12:08] VITALS: BP 127/66
[2020-01-19 13:51] LABS: INR 1.26; PROTHROMBIN TIME 16.1 SECONDS (12.5-14.3)
[2020-01-19 13:52] LABS: PARTIAL THROMBOPLASTIN TIME 56.2 SECONDS (24.2-38.5)
[2020-01-19 13:54] LABS: D-DIMER QUANT 956.43 ng/ml (<500)
[2020-01-19 14:04] LABS: CK-MB VALUE MASS < 1.0 NG/ML (<3.6); CPK CREATINE PHOSPHOKINASE 22 U/L (26-192); FERRITIN 346 NG/ML (8-252); LDH LACTATE DEHYDROGENASE 180 U/L (84-246); MB/CK RELATIVE INDEX 4.55 (< OR =4); TROPONIN I < 0.02 NG/ML (< 0.10)
[2020-01-19 20:00] VITALS: BP 117/69
[2020-01-19] MEDS: amLODIPine 5 MG TAB PO SCH (20:17)
[2020-01-19] MEDS: ACETAMINOPHEN 500 MG TAB PO PRN (20:18)
[2020-01-20] VITALS (8 sets, daily range): BP systolic 102–125; BP diastolic 57–60; O2SAT 94–97
[2020-01-20 00:35] LABS: INR 1.41; PROTHROMBIN TIME 17.6 SECONDS (12.5-14.3)
[2020-01-20 00:37] LABS: PARTIAL THROMBOPLASTIN TIME 63.6 SECONDS (24.2-38.5)
[2020-01-20 00:38] LABS: D-DIMER QUANT 848.51 ng/ml (<500)
[2020-01-20 00:52] LABS: ALBUMIN 2.3 GM/DL (3.2-5.2); ALT/SGPT 62 U/L (12-78); BILIRUBIN,TOTAL 0.4 MG/DL (0.2-1.0); BLOOD UREA NITROGEN 11 MG/DL (7-18); C REACTIVE PROTEIN QUANTITATIV 9.99 MG/DL (0.00-0.30); CALCIUM LEVEL 8.2 MG/DL (8.8-10.2); CARBON DIOXIDE LEVEL 27 MEQ/L (21-32); CHLORIDE LEVEL 109 MEQ/L (98-107); CK-MB VALUE MASS < 1.0 NG/ML (<3.6); CPK CREATINE PHOSPHOKINASE 19 U/L (26-192); CREATININE FOR GFR 0.84 MG/DL (0.55-1.30); FERRITIN 288 NG/ML (8-252); GLOMERULAR FILTRATION RATE > 60.0 (>45); GLUCOSE, FASTING 119 MG/DL (70-100); LDH LACTATE DEHYDROGENASE 146 U/L (84-246); MB/CK RELATIVE INDEX 5.26 (< OR =4); POTASSIUM SERUM 3.7 MEQ/L (3.5-5.1); SODIUM LEVEL 140 MEQ/L (136-145); TOTAL PROTEIN 5.3 GM/DL (6.4-8.2); TROPONIN I < 0.02 NG/ML (< 0.10)
[2020-01-20 07:38] LABS: BASO % 0.4 % (0.0-1.0); EOS # 0.2 10^3/uL (0.0-0.5); EOS % 3.1 % (0.0-3.0); HEMOGLOBIN 10.1 g/dl (12.0-15.5); LYMPH # 1.4 10^3/uL (1.5-5.0); LYMPH % 20.8 % (24.0-44.0); MEAN CORPUSCULAR HEMOGLOBIN 27.8 pg (27.0-33.0); MEAN CORPUSCULAR HGB CONC 30.6 g/dl (32.0-36.5); MEAN CORPUSCULAR VOLUME 90.9 fl (80.0-96.0); MONO # 0.6 10^3/uL (0.0-0.8); MONO % 8.8 % (0.0-5.0); NEUTROPHILS # 4.4 10^3/uL (1.5-8.5); NEUTROPHILS % 66.3 % (36.0-66.0); PLATELET COUNT, AUTOMATED 220 10^3/uL (150-450); RED BLOOD COUNT 3.63 10^6/uL (4.00-5.40); WHITE BLOOD COUNT 6.7 10^3/uL (4.0-10.0)
[2020-01-20 07:48] LABS: INR 1.2; PROTHROMBIN TIME 15.5 SECONDS (12.5-14.3)
[2020-01-20 07:49] LABS: PARTIAL THROMBOPLASTIN TIME 46.9 SECONDS (24.2-38.5)
[2020-01-20 07:51] LABS: D-DIMER QUANT 804.21 ng/ml (<500)
[2020-01-20] MEDS: ALBUTEROL 90 MCG/ACT 8GM HFA INHALER INH SCH ×4 (07:53→20:03)
[2020-01-20 07:59] LABS: BLOOD UREA NITROGEN 10 MG/DL (7-18); CALCIUM LEVEL 8.6 MG/DL (8.8-10.2); CARBON DIOXIDE LEVEL 29 MEQ/L (21-32); CHLORIDE LEVEL 109 MEQ/L (98-107); CK-MB VALUE MASS < 1.0 NG/ML (<3.6); CPK CREATINE PHOSPHOKINASE 19 U/L (26-192); CREATININE FOR GFR 0.77 MG/DL (0.55-1.30); FERRITIN 299 NG/ML (8-252); GLOMERULAR FILTRATION RATE > 60.0 (>45); GLUCOSE, FASTING 97 MG/DL (70-100); LDH LACTATE DEHYDROGENASE 150 U/L (84-246); MB/CK RELATIVE INDEX 5.26 (< OR =4); SODIUM LEVEL 141 MEQ/L (136-145); TROPONIN I < 0.02 NG/ML (< 0.10)
[2020-01-20 08:02] LABS: ERYTHROCYTE SEDIMENTATION RATE 70 mm/hr (0-30)
[2020-01-20] MEDS: IRBESARTAN 150MG TAB PO SCH (08:33)
[2020-01-20] MEDS: ACETAMINOPHEN 500 MG TAB PO PRN (08:49)
[2020-01-20] MEDS: OMEPRAZOLE 20 MG CAP PO SCH (08:50)
[2020-01-20] MEDS: LACTOBACILLUS ACIDOPHILUS CAP (BACID) PO SCH ×2 (08:50→18:49)
[2020-01-20] MEDS: CEFEPIME HCL 2 GM in D5W MINI-BAG PLUS 50 ML IV SCH ×2 (08:51→15:15)
[2020-01-20] MEDS: ASPIRIN 81 MG ENTERIC TAB PO SCH (08:51)
[2020-01-20] MEDS: SERTRALINE HCL 50 MG TAB PO SCH (08:51)
[2020-01-20] MEDS: ENOXAPARIN 80MG/0.8ML SYRINGE (J1650 PER 10MG) SQ SCH ×2 (10:04→20:19)
--- NOTE | 2020-01-20 11:39 | ECHO ---
DATE OF PROCEDURE: 01/19/2020 Age: 69 Gender: Female Height: 65 inches Weight: 185 pounds Body surface area: 1.91 m2 PATIENT LOCATION: Inpatient [address] [place] [address], Room 4107. REFERRING PHYSICIAN: Lilian Linton MD. INDICATION: Pulmonary congestion. MEASUREMENTS: 2D Measurements: RV 3.9 cm LV 4.1 cm Septum 1.0 cm Posterior wall 1.0 cm Aortic Root 3.6 cm Ascending aorta 3.8 cm LA 3.7 cm LVEF 69% Doppler Measurements: AV 1.44 m/s LVOT 1.05 m/s MV-E 75, A 83, E/A ratio 0.9 Early mitral deceleration time 180 msec E prime medial 7.9, A prime medial 12, E prime lateral 6.9 Average E/E prime ratio 16/PCWP 14.5 mmHg PV 0.9 m/s Pulmonary artery acceleration time 100 msec RVSP 37 mmHg IVC 1.2 cm COMMENTS: Normal sinus rhythm without intraventricular conduction disturbance. M-mode and two-dimensional echocardiography was performed with pulse, continuous wave, color flow, and tissue Doppler studies. Normal left ventricular size, wall thickness, and hyperkinetic wall motion. Left atrial size upper limits of normal with grade 1 left ventricular (LV) diastolic dysfunction, but currently normal estimated mean left atrial pressure. Right heart chamber sizes were upper limits of normal with normal right ventricular free wall motion with Doppler evidence of mild pulmonary hypertension. Somewhat reduced inferior vena cava (IVC) size with normal collapse suggestive of a relatively low (normal) central venous pressure. Normal aortic root diameter with mildly dilated ascending aorta. Normal appearing aortic valvular apparatus with normal cusp separation, but trace aortic insufficiency. Slightly thickened mitral annulus with normal leaflet thickness and excursion and no posterior systolic buckling. Trace physiological degree of mitral insufficiency. Normal appearing tricuspid valve with mild insufficiency. No apparent intracardiac mass or pericardial effusion MTDD
--- NOTE | 2020-01-20 17:31 | IPNPDOC ---
Date Seen The patient was seen on 01/20/20. Progress Note SUBJECTIVE: denies suárez, fever, chills. admits to pleuritic cp. c/o urine retention. PHYSICAL EXAMINATION: VITAL SIGNS: See below GENERAL APPEARANCE: no conversational dypsnea or use of resp acc mm. no pallor no cyanosis HEENT: No nasal flaring, no JVD or thyromegaly. No stridor. moist mm CARDIOVASCULAR: S1, S2, sinus rhythm, regular rate rhythm, no murmurs, rubs or gallops LUNGS: bibasilar crackles, no wheezing. ABDOMEN: Positive bowel sounds, soft, nontender, nondistended. No hepatosplen omegaly. No abdominal bruit EXTREMITIES: No cyanosis, clubbing or pitting edema LABORATORY DATA: See below. IMAGING: INDICATION: fever COMPARISON: 01/04/2020 TECHNIQUE: Portable AP view of the chest FINDINGS: The mediastinum and cardiac silhouette are stable and within normal limits for portable technique. Bilateral interstitial infiltrates are appreciated (right greater than left). Underlying chronic changes remains stable. IMPRESSION: Bilateral interstitial infiltrates suspected. <Electronically signed by James Alvarez > 01/17/20 1559 LABORATORY DATA, IMAGING STUDIES, MICROBIOLOGY: Please see below. Echocardiogram: DATE OF PROCEDURE: 01/19/2020 Age: 69 Gender: Female Height: 65 inches Weight: 185 pounds Body surface area: 1.91 m2 PATIENT LOCATION: Inpatient [address] [place] [address], Room 4107. REFERRING PHYSICIAN: Lilian Virgen MD. INDICATION: Pulmonary congestion. MEASUREMENTS: 2D Measurements: RV 3.9 cm LV 4.1 cm Septum 1.0 cm Posterior wall 1.0 cm Aortic Root 3.6 cm Ascending aorta 3.8 cm LA 3.7 cm LVEF 69% Doppler Measurements: AV 1.44 m/s LVOT 1.05 m/s MV-E 75, A 83, E/A ratio 0.9 Early mitral deceleration time 180 msec E prime medial 7.9, A prime medial 12, E prime lateral 6.9 Average E/E prime ratio 16/PCWP 14.5 mmHg PV 0.9 m/s Pulmonary artery acceleration time 100 msec RVSP 37 mmHg IVC 1.2 cm COMMENTS: Normal sinus rhythm without intraventricular conduction disturbance. M-mode and two-dimensional echocardiography was performed with pulse, continuouswave, color flow, and tissue Doppler studies. Normal left ventricular size, wall thickness, and hyperkinetic wall motion. Left atrial size upper limits of normal with grade 1 left ventricular (LV) diastolic dysfunction, but currently normal estimated mean left atrial pressure. Right heart chamber sizes were upper limits of normal with normal right ventricular free wall motion with Doppler evidence of mild pulmonary hypertension. Somewhat reduced inferior vena cava (IVC) size with normal collapse suggestive of a relatively low (normal) central venous pressure. Normal aortic root diameter with mildly dilated ascending aorta. Normal appearing aortic valvular apparatus with normal cusp separation, but trace aortic insufficiency. Slightly thickened mitral annulus with normal leaflet thickness and excursion and no posterior systolic buckling. Trace physiological degree of mitral insufficiency. Normal appearing tricuspid valve with mild insufficiency. No apparent intracardiac mass or pericardial effusion DD: Boris Short MD, [facility] 01/19/20 7983 MICROBIOLOGY: Please see below. ASSESSMENT: .69-year-old female diagnosed with Covid entreated as an inpatient from from January 02 to January 06 with from this severe and Solu-Medrol was discharged home, 97% on room air, which turns to the emergency room today because of recurrent fevers at home for the past 4 days, highest was 102.2. Height taken 2 tablets of Tylenol today. She denies any cough, shortness of breath, pleuritic chest pain, nausea, vomiting, headaches, diarrhea, abdominal pain, dysuria, urgency, frequency, chills, flank pain. Patient says that her taste has improved since she's been released from the hospital. She's had no other sick contacts. I n the ER she was found to have bilateral infiltrates on chest x-ray, afebrile with white count of 13 and elevated serum inflammatory markers. Hospitalist was asked to admit the patient for possible secondary bacterial infection and due to recent hospitalization and is now being admitted for healthcare associated pneumonia. Patient is saturating 97% on room air and has no wheezing on examination. Healthcare associated pneumonia -s/p vanco but dc'ed due to mrsa negative. inflammatory markers decreasing, and defervesced.continue gram negative coverage. acute hypoxic respiratory failure 87% room air -due to HCAP. ID consulted to determine if covid still contributing to pt's hypoxia. Recent Covid pneumonia treated 01/03/2020 to 01/07/2020 , complicated by acute hypoxic respiratory failure requiring prone positioning -defer to ID if pt requires extended remdesevir or needs actemra if covid is suspected to be contributing to current hypoxia. cycle inflammatory markers. echo reassuring and normal.still on asa and lovenox 1mg/kg sq q12h due to hypercoagulability in covid pts. hypertension -controlled. holding parameters on bp meds reflux -chronic. no c/o. depression -no suicidal ideation restless legs -no c/o. Asthma -no wheezing on exam. urine retention -prn self cath for pvr >300ml. consider flomax dispo: needs 7 days iv abx to be completed. await ID recommendations. VS, I&O, 24H, Fishbone Vital Signs/I&O Vital Signs Date Time Temp Pulse Resp B/P (MAP) Pulse Ox O2 Delivery O2 Flow Rate FiO2 01/20/20 16:00 97.8 82 18 102/60 (74) 97 Room Air 01/20/20 08:00 1.0 I&O- Last 24 Hours up to 6 AM 01/20/20 06:00 Intake Total 890 ml Output Total 1800 ml Balance -910 ml Laboratory Data 24H LABS Laboratory Tests 2 01/19/20 23:58: Erythrocyte Sedimentation Rate 65H, Prothrombin Time 17.6H, Prothromb Time International Ratio 1.41, Activated Partial Thromboplast Time 63.6H, D-Dimer, Quantitative 848.51H, Anion Gap 4L, Glomerular Filtration Rate > 60.0, Calcium Level 8.2L, Ferritin 288H, Total Bilirubin 0.4#, Aspartate Amino Transf (AST/SGOT) 28, Alanine Aminotransferase (ALT/SGPT) 62, Alkaline Phosphatase 82, Lactate Dehydrogenase 146, Total Creatine Kinase 19L, Creatine Kinase MB < 1.0, Creatine Kinase MB Relative Index 5.26H, Troponin I < 0.02, C-Reactive Protein, Quantitative 9.99H, Total Protein 5.3L, Albumin 2.3L, Albumin/Globulin Ratio 0.8L 01/20/20 07:15: Erythrocyte Sedimentation Rate 70H, Prothrombin Time 15.5H, Prothromb Time International Ratio 1.20, Activated Partial Thromboplast Time 46.9H, D-Dimer, Quantitative 804.21H, Anion Gap 3L, Glomerular Filtration Rate > 60.0, Calcium Level 8.6L, Ferritin 299H, Lactate Dehydrogenase 150, Total Creatine Kinase 19L, Creatine Kinase MB < 1.0, Creatine Kinase MB Relative Index 5.26H, Troponin I < 0.02, C-Reactive Protein, Quantitative 10.30H, Immature Granulocyte % (Auto) 0.6, Neutrophils (%) (Auto) 66.3H, Lymphocytes (%) (Auto) 20.8L, Monocytes (%) (Auto) 8.8H, Eosinophils (%) (Auto) 3.1H, Basophils (%) (Auto) 0.4, Neutrophils # (Auto) 4.4, Lymphocytes # (Auto) 1.4L, Monocytes # (Auto) 0.6, Eosinophils # (Auto) 0.2, Basophils # (Auto) 0.0, Nucleated Red Blood Cells % (auto) 0.0 CBC/BMP Laboratory Tests 01/19/20 23:58 01/20/20 07:15 Microbiology Microbiology 01/17/20 Blood Culture - Preliminary, Resulted No Growth after 72 hours. All specime... 01/17/20 Blood Culture - Preliminary, Resulted No Growth after 72 hours. All specime... LILIAN VIRGEN MD Jan 20, 2020 16:43
[2020-01-20] MEDS: amLODIPine 5 MG TAB PO SCH (20:04)
[2020-01-21] VITALS (14 sets, daily range): BP systolic 100–137; BP diastolic 48–76; O2SAT 92–98
[2020-01-21] MEDS: LevoFLOXacin 750 MG TABLET PO SCH (05:40)
[2020-01-21 07:59] LABS: BASO % 0.5 % (0.0-1.0); EOS # 0.3 10^3/uL (0.0-0.5); EOS % 4.8 % (0.0-3.0); HEMATOCRIT 31.4 % (36.0-47.0); HEMOGLOBIN 9.6 g/dl (12.0-15.5); LYMPH # 1.8 10^3/uL (1.5-5.0); LYMPH % 27.8 % (24.0-44.0); MEAN CORPUSCULAR HEMOGLOBIN 27.7 pg (27.0-33.0); MEAN CORPUSCULAR HGB CONC 30.6 g/dl (32.0-36.5); MEAN CORPUSCULAR VOLUME 90.8 fl (80.0-96.0); MONO # 0.6 10^3/uL (0.0-0.8); MONO % 8.6 % (0.0-5.0); NEUTROPHILS # 3.8 10^3/uL (1.5-8.5); NEUTROPHILS % 57.5 % (36.0-66.0); PLATELET COUNT, AUTOMATED 213 10^3/uL (150-450); RED BLOOD COUNT 3.46 10^6/uL (4.00-5.40); WHITE BLOOD COUNT 6.5 10^3/uL (4.0-10.0)
[2020-01-21 08:20] LABS: BLOOD UREA NITROGEN 11 MG/DL (7-18); CALCIUM LEVEL 8.5 MG/DL (8.8-10.2); CARBON DIOXIDE LEVEL 27 MEQ/L (21-32); CHLORIDE LEVEL 110 MEQ/L (98-107); CREATININE FOR GFR 0.75 MG/DL (0.55-1.30); GLOMERULAR FILTRATION RATE > 60.0 (>45); GLUCOSE, FASTING 96 MG/DL (70-100); POTASSIUM SERUM 3.9 MEQ/L (3.5-5.1); SODIUM LEVEL 142 MEQ/L (136-145)
[2020-01-21] MEDS: ASPIRIN 81 MG ENTERIC TAB PO SCH (08:26)
[2020-01-21] MEDS: OMEPRAZOLE 20 MG CAP PO SCH (08:26)
[2020-01-21] MEDS: LACTOBACILLUS ACIDOPHILUS CAP (BACID) PO SCH ×2 (08:26→19:45)
[2020-01-21] MEDS: ENOXAPARIN 80MG/0.8ML SYRINGE (J1650 PER 10MG) SQ SCH ×2 (08:27→20:19)
[2020-01-21] MEDS: IRBESARTAN 150MG TAB PO SCH (08:27)
[2020-01-21] MEDS: ALBUTEROL 90 MCG/ACT 8GM HFA INHALER INH SCH ×4 (08:29→19:43)
[2020-01-21] MEDS: SERTRALINE HCL 50 MG TAB PO SCH (10:59)
--- NOTE | 2020-01-21 17:23 | CR ---
CONSULTATION REASON FOR CONSULTATION: I was asked to consult by Dr. Linton for evaluation COVID-19 pneumonia. HISTORY OF PRESENT ILLNESS: Alma is a pleasant, 69-year-old female with a recent diagnosis of asthma who was diagnosed with COVID-19 on December 25. She acquired the infection from her friend who plays cards together. Her was infected and sick for a couple of days as well. The patient came to the emergency room on 12/29 with some fever and shortness of breath. Her white count was 8, LDH 691. Blood cultures were negative. The patient was discharged home. She was admitted on 01/02 and discharged on the after five days of IV remdesivir along IV Solu-Medrol 40 mg q.12 hours and treatment with Lovenox 80 mg subcu every 12 hours. She had lower extremity Dopplers that were negative x2. Her white count during the hospitalization was 13,000, ESR 41. The patient was readmitted on 01/16 for fever. Her public health nurse was visiting. She had a temperature of 102 although since she has been here, she only had a temperature of 100.2. Chest x-ray showed possible worsening multifocal pneumonia. The patient was started on IV cefepime with improvement. She had no fever today and has not been hypoxic. Her cough is mostly dry. She complains of back pain on the left side. PAST MEDICAL HISTORY: 1. COVID-19 pneumonia diagnosed 12/26/19, hospitalized January 02 to . 2. Hypertension. 3. Depression. 4. Gastroesophageal reflux disease. 5. Restless legs syndrome. 6. Skin cancer. 7. Asthma. PAST SURGICAL HISTORY: 1. Bilateral total hip arthroplasty. 2. Cholecystectomy. 3. Right rotator cuff repair. 4. Hysterectomy. 5. Skin cancer excision. SOCIAL HISTORY: Denies cigarette use, drug use or alcohol use. She is retired. She lives with her . They live in [place] in the summer and in [place], [place] in the winter. They are currently at the [facility] while waiting to go back to [place]. ALLERGIES: No known drug allergies. MEDICATIONS: 1. Aspirin 81 mg daily. 2. Avapro 300 mg daily. 3. Omeprazole 20 mg. 4. Zoloft 50 mg daily. 5. Cefepime 2 gm IV q.8 hours. 6. Norvasc 5 mg p.o. q.h.s. 7. Lovenox 80 mg b.i.d. 8. Proventil two puffs inhaled b.i.d. 9. Requip 0.25 mg. p.o. q.h.s. p.r.n. 10. Probiotics one tablet p.o. b.i.d. with meals. LABORATORY DATA: White count 6.7, hemoglobin 10.1, hematocrit 33, platelets 220, 66% neutrophils, 20% lymphocytes, 8% monocytes, ESR 70. Sodium 141, potassium 4, chloride 109, bicarb 29, BUN 10, creatinine 0.77, glucose 97, calcium 8.6, ferritin 299 which has decreased from 420. CRP 10.3 down from 17.1. Total protein 5.8, albumin 2.3. Blood cultures, two sets were negative. IMAGING: Chest x-ray showed multifocal air space disease, left more than right, slightly increased from prior exam. Echocardiogram done on 01/18 shows decreased IVC size which is suggestive of dehydration and grade I diastolic dysfunction. MRSA screen was negative. PHYSICAL EXAMINATION: She is pleasant, healthy-looking female in no acute distress. Temperature is 97.8, pulse 82, respirations 18, blood pressure 102/60, O2 sat 97% on room air. Heart: Normal S1, S2, no murmurs, rubs or gallops. Lungs: Diminished breath sounds bilaterally. No crackles appreciated. Abdomen: Soft, tender diffusely. She has multiple ecchymotic areas especially in the lower abdomen. Back: Mild left sacroiliac tenderness. Extremities: No clubbing, cyanosis or edema, no calf tenderness. Neurologic exam: Alert and oriented x3, motor strength normal. IMPRESSION: This is a 69-year-old female diagnosed with COVID-19 on 12/25, then admitted with pneumonia on 01/02, treated with Solu-Medrol, Lovenox and IV remdesivir for five days. The patient was readmitted with recurrent fever and worsening chest x-ray picture of multifocal pneumonia. Blood cultures were negative. The patient received cefepime with improvement. Her procalcitonin has remained less than 0.05 which makes a bacterial pneumonia unlikely although atypical pathogens do not necessarily increase procalcitonin such as Mycoplasma. The patient clinically is better. This could all be inflammatory changes from COVID-19 pneumonitis and not naturally a superimposed bacterial infection. PLAN: To be on the safe side, the patient will finish a course of antibiotic even though I am not fully convinced that this is bacterial pneumonia, switched to Levaquin 750 mg p.o. daily for five days. Urine Legionnaire antigen, pneumococcal antigen are pending. Resume her Breo Ellipta which she takes for her asthma. Continue albuterol as needed. If the patient continues to be afebrile and not have plexus, she should be able to be discharged home in the next 24-48 hours.
[2020-01-21] MEDS: amLODIPine 5 MG TAB PO SCH (20:19)
--- NOTE | 2020-01-21 22:09 | IPNPDOC ---
Subjective Date Seen The patient was seen on 01/21/20. Subjective Chief Complaint/HPI Mrs. Thorpe is a 69 year old female here with COVID pneumonia and atypical pneumonia. This morning, denies fever/chills, chest pain, dyspnea, abdominal pain, or dysuria. Objective Physical Examination General Exam: Positive: Cooperative Eye Exam: Positive: EOMI; Negative: Sclera icteric ENT Exam: Positive: Atraumatic Neck Exam: Positive: Supple Chest Exam: Positive: Other (Bibasilar crackles otherwise clear) Heart Exam: Positive: Rate Normal, Regular Rhythm Abdomen Exam: Positive: Normal bowel sounds, Soft; Negative: Tenderness Extremity Exam: Negative: Edema Neuro Exam: Positive: Cranial Nerves 3-12 NL Psych Exam: Positive: Oriented x 3 Assessment /Plan Assessment Mrs. Thorpe is a 69 year old female here with COVID pneumonia and atypical pneumonia. Last fever was 01/19/2020 at 2000. She was de-escalated to Levoquin to as for coverage for atypical. She has not needed oxygen in the day time. Planning for discharge tomorrow morning. Plan/VTE VTE Prophylaxis Ordered?: Yes Plan 1. Atypical pneumonia -ID following recommendations appreciated -Continue Levaquin for a 5 day coverage 2. COVID pneumonia -ID following recommendations appreciated -No remdesevir needed at this time. -Supportive care and isolation 3. Hypertension -Continue Irbesartan and amlodipine 4. GERD -Continue omeprazole 5. Asthma -PRN albuterol 6. DVT px -Lovenox VS, I&O, 24H, Fishbone Vital Signs/I&O Vital Signs Date Time Temp Pulse Resp B/P (MAP) Pulse Ox O2 Delivery O2 Flow Rate FiO2 01/21/20 20:19 94 137/76 01/21/20 20:00 98.6 18 96 Room Air 01/21/20 07:00 1.0 I&O- Last 24 Hours up to 6 AM 01/21/20 06:00 Intake Total 1740 ml Output Total 1500 ml Balance 240 ml Laboratory Data 24H LABS Laboratory Tests 2 01/21/20 07:29: Immature Granulocyte % (Auto) 0.8, Neutrophils (%) (Auto) 57.5, Lymphocytes (%) (Auto) 27.8, Monocytes (%) (Auto) 8.6H, Eosinophils (%) (Auto) 4.8H, Basophils (%) (Auto) 0.5, Neutrophils # (Auto) 3.8, Lymphocytes # (Auto) 1.8, Monocytes # (Auto) 0.6, Eosinophils # (Auto) 0.3, Basophils # (Auto) 0.0, Nucleated Red Blood Cells % (auto) 0.0, Anion Gap 5L, Glomerular Filtration Rate > 60.0, Calcium Level 8.5L CBC/BMP Laboratory Tests 01/21/20 07:29 Microbiology Microbiology 01/17/20 Blood Culture - Preliminary, Resulted No Growth after 72 hours. All specime... 01/17/20 Blood Culture - Preliminary, Resulted No Growth after 72 hours. All specime... JEFF CARY DO Jan 21, 2020 22:09
[2020-01-22] VITALS (9 sets, daily range): BP systolic 109–117; BP diastolic 56–72; O2SAT 94–97
[2020-01-22] MEDS: LevoFLOXacin 750 MG TABLET PO SCH (05:18)
[2020-01-22 06:27] LABS: BASO # 0.1 10^3/uL (0.0-0.2); BASO % 0.7 % (0.0-1.0); EOS # 0.3 10^3/uL (0.0-0.5); EOS % 4.8 % (0.0-3.0); LYMPH # 1.8 10^3/uL (1.5-5.0); LYMPH % 25.7 % (24.0-44.0); MEAN CORPUSCULAR HEMOGLOBIN 27.8 pg (27.0-33.0); MEAN CORPUSCULAR HGB CONC 31.3 g/dl (32.0-36.5); MEAN CORPUSCULAR VOLUME 88.9 fl (80.0-96.0); MONO # 0.5 10^3/uL (0.0-0.8); MONO % 7.4 % (0.0-5.0); NEUTROPHILS # 4.4 10^3/uL (1.5-8.5); NEUTROPHILS % 60.8 % (36.0-66.0); PLATELET COUNT, AUTOMATED 210 10^3/uL (150-450); WHITE BLOOD COUNT 7.2 10^3/uL (4.0-10.0)
[2020-01-22 06:56] LABS: BLOOD UREA NITROGEN 11 MG/DL (7-18); CALCIUM LEVEL 8.3 MG/DL (8.8-10.2); CARBON DIOXIDE LEVEL 28 MEQ/L (21-32); CHLORIDE LEVEL 109 MEQ/L (98-107); CREATININE FOR GFR 0.67 MG/DL (0.55-1.30); GLOMERULAR FILTRATION RATE > 60.0 (>45); GLUCOSE, FASTING 97 MG/DL (70-100); POTASSIUM SERUM 4.2 MEQ/L (3.5-5.1); SODIUM LEVEL 141 MEQ/L (136-145)
[2020-01-22] MEDS ORDERED: RISATAB3 PO (07:30)
[2020-01-22] MEDS ORDERED: LEVO750T13 PO (07:30)
[2020-01-22] MEDS: IRBESARTAN 150MG TAB PO SCH (09:00)
[2020-01-22] MEDS: OMEPRAZOLE 20 MG CAP PO SCH (09:40)
[2020-01-22] MEDS: ASPIRIN 81 MG ENTERIC TAB PO SCH (09:40)
[2020-01-22] MEDS: SERTRALINE HCL 50 MG TAB PO SCH (09:40)
[2020-01-22] MEDS: LACTOBACILLUS ACIDOPHILUS CAP (BACID) PO SCH (09:40)
[2020-01-22] MEDS: ENOXAPARIN 80MG/0.8ML SYRINGE (J1650 PER 10MG) SQ SCH (11:06)
[2020-01-22 19:08] LABS: BODY FLUID CULTURE Not indicated. (.); LEGIONELLA ANTIGEN URINE Negative (Negative); ORGANISM ID Not indicated. (.); SPECIMEN SOURCE Urine (.); URINE STREP PNEUMONIAE ANTIGEN Negative (Negative)
--- NOTE | 2020-01-22 21:21 | DS.PDOC ---
Discharge Summary General Date of Admission Jan 17, 2020 at 17:14 Date of Discharge Jan 22, 2020 Attending Physician: JEFF CARY DO Specialist/Consultants Involve Infection Disease, Dr. Maria Discharge Summary PROCEDURES PERFORMED DURING STAY: None ADMITTING DIAGNOSES: 1. Healthcare associated pneumonia 2. COVID Positive 3. Hypertension 4. GERD 5. Depression 6. Restless leg syndrome 7. Asthma DISCHARGE DIAGNOSES: 1. Healthcare associated pneumonia 2. COVID Positive 3. Hypertension 4. GERD 5. Depression 6. Restless leg syndrome 7. Asthma COMPLICATIONS/CHIEF COMPLAINT: Bacterial Pneuomonia,Unspecified. HISTORY OF PRESENT ILLNESS: Mrs. Thorpe is a 69-year-old female who was recently admitted for COVID pneumonia between January 02 to January 06 who returns to the ED for recurrent fevers for the past 4 days. Highest temperature was 102.2 Fahrenheit. She denies any cough, dyspnea, nausea, vomiting, headache, diarrhea, abdominal pain, dysuria, or flank pain. Her synthetase has improved since being discharged. In the ED she was found to have bilateral infiltrates on chest x-ray. White blood count was elevated. This concern for secondary bacterial infection and patient was admitted HOSPITAL COURSE: During her hospitalization she's been on IV cefepime. Her last fever was on 01/19/2020. Infectious disease had seen patient in hospital. R ecommending switch to by mouth levofloxacin for additional coverage of atypical. Today patient felt well. She walked with physical therapy and did not desaturate. She denied any fevers, chest pain, dyspnea, abdominal pain, or dysuria. She subsequently discharged with levofloxacin DISCHARGE MEDICATIONS: Please see below. ALLERGIES: Please see below. PHYSICAL EXAMINATION ON DISCHARGE: VITAL SIGNS: Please see below. GENERAL: Comfortable, in no apparent distress. HEENT: Head normocephalic/atraumatic, EOMI, sclera clear. NECK: Supple RESPIRATORY: Lungs clear to auscultation bilaterally, no rales, wheeze or rhonchi. CARDIOVASCULAR: Regular rate and rhythm. ABDOMEN: Soft, nontender, no guarding or rebound tenderness. Normal bowel sounds. MUSCLE SKELETAL: Muscle strength 5/5 in all extremities. NEUROLOGICAL: CN 312 grossly intact, no focal deficits noted. PSYCHOLOGICAL: Normal mood and affect LABORATORY DATA: Please see below. IMAGING: Chest x-ray Bilateral interstitial infiltrates suspected. PROGNOSIS: Stable ACTIVITY: As tolerated. DIET: As tolerated DISCHARGE PLAN: Home with home health services DISPOSITION: Home, Self-Care. DISCHARGE INSTRUCTIONS: 1. Follow with her PCP within 5 days 2. Self-isolation DISCHARGE CONDITION: Stable. Total time spent on discharge planning, discharge summary, and medication reconciliation: 45 minutes Vital Signs/I&Os Vital Signs Date Time Temp Pulse Resp B/P (MAP) Pulse Ox O2 Delivery O2 Flow Rate FiO2 01/22/20 09:00 117/72 01/22/20 08:00 98.6 108 18 97 Room Air 01/22/20 07:01 1.0 I&O- Last 24 Hours up to 6 AM 01/22/20 06:00 Intake Total 1200 ml Output Total 1850 ml Balance -650 ml Laboratory Data Labs 24H Laboratory Tests 2 01/22/20 06:08: Immature Granulocyte % (Auto) 0.6, Neutrophils (%) (Auto) 60.8, Lymphocytes (%) (Auto) 25.7, Monocytes (%) (Auto) 7.4H, Eosinophils (%) (Auto) 4.8H, Basophils (%) (Auto) 0.7, Neutrophils # (Auto) 4.4, Lymphocytes # (Auto) 1.8, Monocytes # (Auto) 0.5, Eosinophils # (Auto) 0.3, Basophils # (Auto) 0.1, Nucleated Red Blood Cells % (auto) 0.0, Anion Gap 4L, Glomerular Filtration Rate > 60.0, Calcium Level 8.3L CBC/BMP Laboratory Tests 01/22/20 06:08 Microbiology Microbiology 01/17/20 Blood Culture - Final, Complete NO GROWTH AFTER 5 DAYS 01/17/20 Blood Culture - Final, Complete NO GROWTH AFTER 5 DAYS Discharge Medications Scheduled Amlodipine Besylate (Amlodipine Besylate) 5 Mg Tablet, 5 MG PO QHS, (Reported) SYSTOLIC > 130 OR DIASTOLIC > 85 Aspirin (Aspirin EC) 81 Mg Tablet.dr, 81 MG PO DAILY, (Reported) Enoxaparin Sodium (Enoxaparin Sodium) 80 Mg/0.8 Ml Syringe, 80 MG SQ BID, (Reported) Irbesartan (Irbesartan) 300 Mg Tablet, 300 MG PO DAILY, (Reported) SYSTOLIC > 130 OR DIASTOLIC > 85 L.acidoph/L.bulg/B.bif/S.therm (Shelby-Bid Caplet) 1 Each Tablet, 1 EA PO BIDWM Levofloxacin (Levofloxacin) 750 Mg Tablet, 750 MG PO DAILY@06 Omeprazole (Omeprazole) 20 Mg Capsule.dr, 20 MG PO DAILY, (Reported) Sertraline HCl (Sertraline HCl) 50 Mg Tablet, 50 MG PO DAILY, (Reported) Scheduled PRN Acetaminophen (Acetaminophen) 500 Mg Tablet, 1,000 MG PO Q6H PRN for PAIN OR FEVER, (Reported) Albuterol Sulfate (Ventolin Hfa) 18 Gm Hfa.aer.ad, 2 PUFFS INH QID PRN for SHORTNESS OF BREATH, (Reported) Fluticasone/Vilanterol (Breo Ellipta 100-25 Mcg INH) 1 Each Blst.w.dev, 1 PUFF INH DAILY PRN for SHORTNESS OF BREATH, (Reported) PATIENT STATES ONLY USING PRN Ropinirole HCl (Ropinirole HCl) 0.25 Mg Tablet, 0.25 MG PO QHS PRN for RESTLESS LEGS, (Reported) Allergies Coded Allergies: No Known Allergies (Unverified , 11/22/19) JEFF CARY DO Jan 22, 2020 21:21
== END 2020-01-22 11:44 | disposition home or self-care (01) | DRG 193 ==
LOC: M ED 14:32 → M ED INP 17:14 → ENRESERV 18:59 → M 4MAIN 20:10
PROVIDERS: ADMIT General Practice; ATTEND Internal Medicine
DX: J18.9 Pneumonia, unspecified organism (principal); J96.01 Acute respiratory failure with hypoxia; I10 Essential (primary) hypertension; J45.909 Unspecified asthma, uncomplicated; K21.9 Gastro-esophageal reflux disease without esophagitis; G25.81 Restless legs syndrome; F32.9 Major depressive disorder, single episode, unspecified; Z79.82 Long term (current) use of aspirin; Z79.899 Other long term (current) drug therapy

== ENCOUNTER → 2020-03-02 | Outpatient (REF) | payer MEDICARE, OTHER ==
[~2020-03-02] MED LIST changes: +ASPI81TA33 PO; +ENOX80IN3 SQ; +LEVO750T13 PO; +RISATAB3 PO; +VENTAER INH
== END ==
LOC: M SFHCLERA 15:24
PROVIDERS: ATTEND Nurse Practitioner Family
DX: R31.9 Hematuria, unspecified (principal)

== ENCOUNTER → 2020-03-02 | Outpatient (CLI) | payer MEDICARE, BC, OTHER ==
[2020-03-02 17:11] LABS: HEMATOCRIT 40.1 % (36.0-47.0); HEMOGLOBIN 12.1 g/dl (12.0-15.5); MEAN CORPUSCULAR HEMOGLOBIN 27.3 pg (27.0-33.0); MEAN CORPUSCULAR HGB CONC 30.2 g/dl (32.0-36.5); MEAN CORPUSCULAR VOLUME 90.5 fl (80.0-96.0); PLATELET COUNT, AUTOMATED 351 10^3/uL (150-450); RED BLOOD COUNT 4.43 10^6/uL (4.00-5.40); WHITE BLOOD COUNT 10.8 10^3/uL (4.0-10.0)
[2020-03-02 17:49] LABS: ALBUMIN 3.9 GM/DL (3.2-5.2); BILIRUBIN,TOTAL 0.4 MG/DL (0.2-1.0); CALCIUM LEVEL 9.2 MG/DL (8.8-10.2); CREATININE FOR GFR 1.3 MG/DL (0.55-1.30); GLOMERULAR FILTRATION RATE 43.2 (>45); POTASSIUM SERUM 3.9 MEQ/L (3.5-5.1); TOTAL PROTEIN 6.7 GM/DL (6.4-8.2)
== END ==
LOC: M LAB 16:22
PROVIDERS: ATTEND Nurse Practitioner Family
DX: R31.9 Hematuria, unspecified (principal)
CPT/HCPCS: 80053; 81002; 85027; 87086; G0463

== ENCOUNTER → 2020-03-03 | Outpatient (REF) | payer MEDICARE, OTHER ==
[2020-03-03 16:23] LABS: BASO # 0.1 10^3/uL (0.0-0.2); BASO % 0.9 % (0.0-1.0); EOS # 0.5 10^3/uL (0.0-0.5); EOS % 4.6 % (0.0-3.0); HEMOGLOBIN 12.7 g/dl (12.0-15.5); LYMPH # 3.8 10^3/uL (1.5-5.0); MEAN CORPUSCULAR HEMOGLOBIN 27.8 pg (27.0-33.0); MEAN CORPUSCULAR HGB CONC 30.2 g/dl (32.0-36.5); MEAN CORPUSCULAR VOLUME 91.9 fl (80.0-96.0); MONO # 0.7 10^3/uL (0.0-0.8); MONO % 6.4 % (0.0-5.0); NEUTROPHILS # 5.5 10^3/uL (1.5-8.5); NEUTROPHILS % 51.5 % (36.0-66.0); PLATELET COUNT, AUTOMATED 369 10^3/uL (150-450); RED BLOOD COUNT 4.57 10^6/uL (4.00-5.40); WHITE BLOOD COUNT 10.6 10^3/uL (4.0-10.0)
[2020-03-03 16:47] LABS: ALBUMIN 3.8 GM/DL (3.2-5.2); ALT/SGPT 19 U/L (12-78); BILIRUBIN,TOTAL 0.5 MG/DL (0.2-1.0); BLOOD UREA NITROGEN 13 MG/DL (7-18); C REACTIVE PROTEIN QUANTITATIV 1.28 MG/DL (0.00-0.30); CALCIUM LEVEL 9.6 MG/DL (8.8-10.2); CARBON DIOXIDE LEVEL 33 MEQ/L (21-32); CHLORIDE LEVEL 105 MEQ/L (98-107); CREATININE FOR GFR 0.89 MG/DL (0.55-1.30); GLOMERULAR FILTRATION RATE > 60.0 (>45); GLUCOSE, FASTING 94 MG/DL (70-100); POTASSIUM SERUM 4.1 MEQ/L (3.5-5.1); SODIUM LEVEL 141 MEQ/L (136-145); TOTAL PROTEIN 6.9 GM/DL (6.4-8.2)
== END ==
LOC: M SFHCCLAY 11:08
PROVIDERS: ATTEND Nurse Practitioner Family
DX: R79.89 Other specified abnormal findings of blood chemistry (principal); R31.9 Hematuria, unspecified; Z86.16 Personal history of COVID-19
CPT/HCPCS: 80053; 85025; 85379; 86140; G0463

== ENCOUNTER → 2020-03-04 | Outpatient (CLI) | payer MEDICARE, BC ==
--- NOTE | 2020-03-04 11:45 | REP ---
INDICATION: R79.89 ELEVATED D-DIMER. COMPARISON: None. TECHNIQUE: Real-time sonographic evaluation of the kidneys is performed. FINDINGS: Renal cortical echogenicity pattern is normal bilaterally and contours are smooth, although there is lobulation of the left renal cortex.. There is no evidence of hydronephrosis, cyst, mass, or calculus in either kidney. The right kidney measures 11.9 x 3.9 x 3.5 cm. Left renal dimensions are 11.7 x 4.3 x 4.9 cm. The urinary bladder is mildly distended. With Doppler color evaluation a right ureteral jet is visualized. A left ureteral jet is not visualized. With duplex Doppler evaluation resistive index of left kidney is 0.47 and right kidney 0.67. IMPRESSION: Negative renal ultrasound. Right ureteral jet visualized. Left ureteral jet not visualized. <Electronically signed by Jessee Murdock > 03/04/20 [id number]
== END ==
LOC: M PLAIMG 09:03
PROVIDERS: ATTEND Nurse Practitioner Family
DX: R79.89 Other specified abnormal findings of blood chemistry (principal)

== ENCOUNTER → 2020-03-19 | Outpatient (REF) | payer MEDICARE, OTHER ==
[2020-03-19 16:19] LABS: HEMATOCRIT 43.2 % (36.0-47.0); HEMOGLOBIN 12.9 g/dl (12.0-15.5); MEAN CORPUSCULAR HEMOGLOBIN 26.9 pg (27.0-33.0); MEAN CORPUSCULAR HGB CONC 29.9 g/dl (32.0-36.5); PLATELET COUNT, AUTOMATED 309 10^3/uL (150-450); WHITE BLOOD COUNT 9.7 10^3/uL (4.0-10.0)
== END ==
LOC: M SFHCCLAY 10:27
PROVIDERS: ATTEND Family Medicine
DX: R31.9 Hematuria, unspecified (principal); R79.89 Other specified abnormal findings of blood chemistry
CPT/HCPCS: 85027; 85379; G0463

== ENCOUNTER → 2020-06-29 | Outpatient (REF) | payer MEDICARE, OTHER ==
[~2020-06-29] MED LIST changes: +ASPI-569 PO; -ASPI81TAEC PO; +XARE15TA PO
[2020-06-29 16:20] LABS: APPEARANCE, URINE CLOUDY (CLEAR); BACTERIA, URINE AUTO 1+ (NEGATIVE); BILIRUBIN, URINE AUTO NEGATIVE (NEGATIVE); BLOOD, URINE BLOOD 3+ (NEGATIVE); CALCIUM OXALATE CRYSTALS SMALL; COLOR, URINE AMBER (YELLOW); GLUCOSE, URINE (UA) AUTO NEGATIVE (NEGATIVE); KETONE, URINE AUTO TRACE mg/dL (NEGATIVE); LEUKOCYTE ESTERASE, URINE AUTO NEGATIVE (NEGATIVE); NITRITE, URINE AUTO NEGATIVE (NEGATIVE); PROTEIN, URINE AUTO 2+ mg/dL (NEGATIVE); RBC, URINE AUTO TNTC /HPF (0-3); SPECIFIC GRAVITY URINE AUTO 1.023 (1.002-1.035); SQUAMOUS EPITHELIAL CELL UR AU 0 /HPF (0-6); WBC, URINE AUTO 13 /HPF (0-3)
== END ==
LOC: M SFHCCLAY 11:13
PROVIDERS: ATTEND Nurse Practitioner Family
DX: R31.9 Hematuria, unspecified (principal)

== ENCOUNTER → 2020-07-13 | Outpatient (CLI) | payer MEDICARE, OTHER ==
--- NOTE | 2020-07-13 11:02 | REPPI ---
INDICATION: R94.2 ABNORMAL RESULTS OF PULMONARY FUNCTION STUDIES COMPARISON: 01/19/2020 TECHNIQUE: PA and lateral. FINDINGS: The mediastinum and cardiac silhouette are normal. The lung king are clear and without acute consolidation, effusion, or pneumothorax. Previously identified infiltrates have resolved. The skeletal structures are intact and normal. IMPRESSION: No acute cardiopulmonary process. <Electronically signed by James Alvarez > 07/13/20 [id number]
== END ==
LOC: M PLAIMG 10:46
PROVIDERS: ATTEND Physician Assistant
DX: R94.2 Abnormal results of pulmonary function studies (principal)

== ENCOUNTER 2020-09-06 11:41 | Emergency (ER) | payer MEDICARE, BC, OTHER ==
[~2020-09-06] VITALS: Ht 165.1 cm; Wt 83.9 kg
[2020-09-06] MEDS ORDERED: AMOX875T (12:06)
[2020-09-06 15:50] LABS: BASO # 0.1 10^3/uL (0.0-0.2); BASO % 0.6 % (0.0-1.0); EOS # 0.2 10^3/uL (0.0-0.5); EOS % 1.9 % (0.0-3.0); HEMATOCRIT 46.9 % (36.0-47.0); HEMOGLOBIN 14.6 g/dl (12.0-15.5); LYMPH # 2.9 10^3/uL (1.5-5.0); LYMPH % 23.2 % (24.0-44.0); MEAN CORPUSCULAR HEMOGLOBIN 27.2 pg (27.0-33.0); MEAN CORPUSCULAR HGB CONC 31.1 g/dl (32.0-36.5); MEAN CORPUSCULAR VOLUME 87.3 fl (80.0-96.0); MONO # 0.5 10^3/uL (0.0-0.8); MONO % 3.9 % (2.0-8.0); NEUTROPHILS # 8.7 10^3/uL (1.5-8.5); NEUTROPHILS % 69.8 % (36.0-66.0); PLATELET COUNT, AUTOMATED 330 10^3/uL (150-450); RED BLOOD COUNT 5.37 10^6/uL (4.00-5.40); WHITE BLOOD COUNT 12.4 10^3/uL (4.0-10.0)
[2020-09-06 16:21] LABS: ALBUMIN 4.4 GM/DL (3.2-5.2); BILIRUBIN,DIRECT 0.2 MG/DL (0.0-0.2); BILIRUBIN,TOTAL 0.6 MG/DL (0.2-1.0)
[2020-09-06] MEDS ORDERED: LIDOCAINE W/EPINEPHRINE 1% 20ML VIAL SC ONE (16:50)
[2020-09-06] MEDS ORDERED: LIDOCAINE W/EPINEPHRINE 1% 20ML VIAL As Ordered ONE (16:51)
[2020-09-06] MEDS ORDERED: PERI12LIQ PO (17:16)
[2020-09-06] MEDS ORDERED: AUGM875T28 PO (17:16)
[2020-09-06] MEDS ORDERED: AUGMENTIN 875 MG TAB PO ONE (17:20)
--- NOTE | 2020-09-06 17:24 | REP ---
INDICATION: evaluate parotid gland. COMPARISON: None. TECHNIQUE: Soft tissue ultrasound techniques to evaluate the parotid gland with color flow imaging as well. FINDINGS: The right parotid gland measures 5.7 x 2.6 x 1.4 cm and the left is 6.2 x 1.9 by 0.5 cm. Both of these are homogeneous without discrete masses or fluid collections within. No dilated duct identified. Adjacent to the right parotid gland are 2 lymph nodes, the larger 9 x 4 x 9 mm in the smaller 7 x 3 x 7 mm. On the left side 2 nodes are also seen at 8 x 4 x 7 mm and 7 x 2 x 5 mm. All of these nodes show predominately central fatty appearance with a thin rim of hypoechoic tissue, a sonographically normal bandar morphology. IMPRESSION: 1. Symmetric size of the parotid glands with homogeneous echotexture throughout and no intraparotid mass or fluid collection. 2. Both parotids show lymph nodes adjacent with the 2 largest on the right 9 and 7 mm respectively, on the left 8 and 7 mm. All of these nodes have central hyperechoic or fatty appearance with a thin rim of hypoechoic tissue, a normal bandar morphology. <Electronically signed by Hermilo Higginbotham > 09/06/20 [id number]
[2020-09-06 17:37] VITALS: BP 164/87
--- NOTE | 2020-09-08 09:45 | RO ---
OPERATIVE NOTE DATE OF OPERATION: 09/06/2020 PREOPERATIVE DIAGNOSIS: Left parotid stone. POSTOPERATIVE DIAGNOSIS: Left parotid stone. The patient was seen in the emergency department with swelling and pain on the left side of her face, which has been going on for a number of months already. Recently, the swelling became worse. It is only on the left side. She is on anticoagulation medication. Examination shows that she has a stone at the opening of Stensen's duct on the left side. Impression: The patient has a left parotid stone. SURGEON: Ulises Evans MD TRAVEL GUIDE: ANESTHESIA: DESCRIPTION OF PROCEDURE: I infiltrated the area with lidocaine and epinephrine . I made an incision and then opened up the duct and removed the stone, which measured 8 x 4 mm in size. After that, it was good saliva flow. The patient tolerated the procedure well. The patient is on antibiotics and will finish the antibiotics. If her problems recur, she should see me again for follow up.
== END 2020-09-06 17:41 | disposition home or self-care (01) ==
LOC: M ED 11:41
DX: K11.5 Sialolithiasis (principal); I10 Essential (primary) hypertension; E78.5 Hyperlipidemia, unspecified; K21.9 Gastro-esophageal reflux disease without esophagitis; F17.200 Nicotine dependence, unspecified, uncomplicated; Z86.16 Personal history of COVID-19; Z85.828 Personal history of other malignant neoplasm of skin; Z79.82 Long term (current) use of aspirin; Z79.899 Other long term (current) drug therapy

== ENCOUNTER → 2020-09-27 | Outpatient (CLI) | payer MEDICARE, BC, OTHER ==
[~2020-09-27] MED LIST changes: +AMOX875T; +AUGM875T28 PO; +PERI12LIQ PO
--- NOTE | 2020-09-27 13:46 | REPVR ---
PROCEDURE INFORMATION: Exam: MR Lumbar Spine Without Contrast. Exam date and time: 09/27/2020 1:15 PM Age: 70 years old Clinical indication: Low back pain; Additional info: Lbp TECHNIQUE: Imaging protocol: Multiplanar magnetic resonance images of the lumbar spine without contrast. COMPARISON: RENAL US 03/04/2020 9:21 AM FINDINGS: There is maintenance of the normal lumbar lordosis. Grade 1 anterolisthesis at L4-L5 and L5-S1. No acute compression fractures or marrow edema. A T12 compression fracture with mild focal kyphosis is old, without edema. The distal spinal cord appears normal. Mild degenerative change in the imaged thoracic spine with small circumferential disc bulges at T10-11 and T11-12 with likely mild canal narrowing. At T12-L1, there is mild spinal canal narrowing, partially imaged. At L1-L2, minimal circumferential disc bulge is present without significant spinal canal or neural foraminal narrowing. At L2-L3, minimal circumferential disc bulge is present without significant spinal canal or neural foraminal narrowing. Mild bilateral facet arthrosis. At L3-L4, mild circumferential disc bulge and mild epidural lipomatosis is present. Minimal spinal canal narrowing. Mild bilateral inferior neural foraminal narrowing. Moderate bilateral facet arthrosis. At L4-L5, spondylolisthesis and epidural lipomatosis with ligamentum flavum hypertrophy results in mild spinal canal narrowing. Moderate right and mild left neural foraminal narrowing. Severe bilateral facet arthrosis with small joint effusions present. At L5-S1, there is mild circumferential disc bulge. Minimal spinal canal narrowing. Mild bilateral neural foraminal narrowing. Severe bilateral facet arthrosis. IMPRESSION: No moderate or severe lumbar spinal canal stenosis. There is up to moderate neural foraminal narrowing on the right at L4-L5. Severe lower lumbar facet arthrosis. Electronically signed by: Mario Garcia On 09/27/2020 13:45:32 PM
== END ==
LOC: M RAD 12:33
PROVIDERS: ATTEND Nurse Practitioner Family
DX: G89.29 Other chronic pain (principal); M47.819 Spondylosis without myelopathy or radiculopathy, site unspecified; M51.26 Other intervertebral disc displacement, lumbar region; M51.36 Other intervertebral disc degeneration, lumbar region; M43.16 Spondylolisthesis, lumbar region

== ENCOUNTER → 2021-07-26 | Outpatient (REF) | payer MEDICARE, OTHER ==
[~2021-07-26] MED LIST changes: +OMEP-173 PO; -OMEP-218 PO
[2021-07-26 16:29] LABS: BASO # 0.1 10^3/uL (0.0-0.2); BASO % 0.9 % (0.0-1.0); EOS # 0.3 10^3/uL (0.0-0.5); EOS % 3.4 % (0.0-3.0); HEMATOCRIT 42.6 % (36.0-47.0); HEMOGLOBIN 13.1 g/dl (12.0-15.5); LYMPH # 2.8 10^3/uL (1.5-5.0); LYMPH % 30.8 % (24.0-44.0); MEAN CORPUSCULAR HEMOGLOBIN 26.7 pg (27.0-33.0); MEAN CORPUSCULAR HGB CONC 30.8 g/dl (32.0-36.5); MEAN CORPUSCULAR VOLUME 86.8 fl (80.0-96.0); MONO # 0.6 10^3/uL (0.0-0.8); MONO % 6.1 % (2.0-8.0); NEUTROPHILS # 5.3 10^3/uL (1.5-8.5); NEUTROPHILS % 58.2 % (36.0-66.0); PLATELET COUNT, AUTOMATED 304 10^3/uL (150-450); RED BLOOD COUNT 4.91 10^6/uL (4.00-5.40); WHITE BLOOD COUNT 9.1 10^3/uL (4.0-10.0)
[2021-07-26 16:45] LABS: ALBUMIN 3.7 GM/DL (3.2-5.2); ALT/SGPT 23 U/L (12-78); BILIRUBIN,TOTAL 0.4 MG/DL (0.2-1.0); BLOOD UREA NITROGEN 14 MG/DL (7-18); CALCIUM LEVEL 9.5 MG/DL (8.8-10.2); CARBON DIOXIDE LEVEL 30 MEQ/L (21-32); CHLORIDE LEVEL 107 MEQ/L (98-107); CHOLESTEROL LEVEL 261 MG/DL (<200); CHOLESTEROL RISK RATIO 5.437 (<5); CREATININE FOR GFR 0.92 MG/DL (0.55-1.30); FREE T4 0.87 NG/DL (0.76-1.46); GLOMERULAR FILTRATION RATE > 60.0 (>39); GLUCOSE, FASTING 94 MG/DL (70-100); HDL CHOLESTEROL 48 MG/DL (>40); LDL CHOLESTEROL 179 MG/DL (<100); MAGNESIUM LEVEL 2.3 MG/DL (1.8-2.4); NON-HDL-C 213 MG/DL; POTASSIUM SERUM 4.5 MEQ/L (3.5-5.1); SODIUM LEVEL 144 MEQ/L (136-145); TOTAL PROTEIN 6.9 GM/DL (6.4-8.2); TRIGLYCERIDES LEVEL 172 MG/DL (<150)
[2021-07-26 18:05] LABS: HEMOGLOBIN A1c 5.8 %
== END ==
LOC: M SFHCCLAY 09:53
PROVIDERS: ATTEND Nurse Practitioner Family
DX: E78.5 Hyperlipidemia, unspecified (principal); Z13.1 Encounter for screening for diabetes mellitus; R79.89 Other specified abnormal findings of blood chemistry; R31.9 Hematuria, unspecified; Z86.16 Personal history of COVID-19; Z79.899 Other long term (current) drug therapy

== ENCOUNTER → 2022-10-26 | Outpatient (CLI) | payer MEDICARE, OTHER ==
[~2022-10-26] MED LIST changes: +CELE0.09 PO; -CELE1CAP9 PO; +LEVO1TAB40 PO; -LEVO750T13 PO; -ROPI0.253 PO; +ROPI5TAB19 PO
== END ==
LOC: M PLAIMG 12:13
PROVIDERS: ATTEND Internal Medicine Pulmonary Disease
DX: R06.00 Dyspnea, unspecified (principal)

== ENCOUNTER → 2022-11-23 | Outpatient (CLI) | payer MEDICARE, BC, OTHER | LOC: M CARPUL 10:54 | PROVIDERS: ATTEND Internal Medicine Pulmonary Disease | DX: R06.00 Dyspnea, unspecified (principal); I08.3 Combined rheumatic disorders of mitral, aortic and tricuspid valves; I27.20 Pulmonary hypertension, unspecified; I77.811 Abdominal aortic ectasia ==

== ENCOUNTER → 2022-11-24 | Outpatient (CLI) | payer MEDICARE, BC, OTHER | LOC: M CARPUL 11-03 14:21 | PROVIDERS: ATTEND Internal Medicine Pulmonary Disease | DX: R94.2 Abnormal results of pulmonary function studies (principal) ==

== ENCOUNTER → 2023-07-31 | Outpatient (REF) | payer MEDICARE, BC ==
[~2023-07-31] MED LIST changes: +IRBE300T25 PO; -IRBE300T7 PO
[2023-07-31 17:39] LABS: BASO # 0.1 10^3/uL (0.0-0.2); BASO % 1.2 % (0.0-1.0); EOS # 0.3 10^3/uL (0.0-0.5); EOS % 3.7 % (0.0-3.0); HEMATOCRIT 41.9 % (36.0-47.0); HEMOGLOBIN 13.2 g/dl (12.0-15.5); LYMPH # 2.9 10^3/uL (1.5-5.0); LYMPH % 34.6 % (24.0-44.0); MEAN CORPUSCULAR HEMOGLOBIN 28.1 pg (27.0-33.0); MEAN CORPUSCULAR HGB CONC 31.5 g/dl (32.0-36.5); MEAN CORPUSCULAR VOLUME 89.3 fl (80.0-96.0); MONO # 0.6 10^3/uL (0.0-0.8); MONO % 6.6 % (2.0-8.0); NEUTROPHILS # 4.5 10^3/uL (1.5-8.5); NEUTROPHILS % 53.3 % (36.0-66.0); PLATELET COUNT, AUTOMATED 288 10^3/uL (150-450); RED BLOOD COUNT 4.69 10^6/uL (4.00-5.40); WHITE BLOOD COUNT 8.4 10^3/uL (4.0-10.0)
[2023-07-31 18:00] LABS: ALBUMIN 3.7 G/DL (3.2-5.2); ALKALINE PHOSPHATASE 122 U/L (46-116); ALT/SGPT 19 U/L (7.0-40); AST/SGOT 12 U/L (<34); BILIRUBIN,TOTAL 0.6 MG/DL (0.3-1.2); BLOOD UREA NITROGEN 16 MG/DL (9-23); CALCIUM LEVEL 9.9 MG/DL (8.3-10.6); CARBON DIOXIDE LEVEL 31 MMOL/L (20-31); CHLORIDE LEVEL 105 MMOL/L (98-107); CHOLESTEROL LEVEL 167 MG/DL (<200); CHOLESTEROL RISK RATIO 3.59 (<5); CREATININE FOR GFR 0.85 MG/DL (0.55-1.30); FREE T4 0.95 NG/DL (0.89-1.76); GLOMERULAR FILTRATION RATE > 60.0 (>39); GLUCOSE, FASTING 91 MG/DL (74-106); HDL CHOLESTEROL 46.5 MG/DL (>40); LDL CHOLESTEROL 72.3 MG/DL (<100); NON-HDL-C 120.5 MG/DL; POTASSIUM SERUM 4.1 MMOL/L (3.5-5.1); SODIUM LEVEL 142 MMOL/L (136-145); TOTAL PROTEIN 6.7 G/DL (5.7-8.2); TRIGLYCERIDES LEVEL 241 MG/DL (<150)
[2023-07-31 18:01] LABS: THYROID STIMULATING HORMONE 1.469 uIU/ML (0.55-4.78)
[2023-07-31 18:18] LABS: HEMOGLOBIN A1c 5.9 % (4.0-6.0)
== END ==
LOC: M SFHCCLAY 14:05
PROVIDERS: ATTEND Nurse Practitioner Family
DX: Z00.00 Encounter for general adult medical examination without abnormal findings (principal); G45.9 Transient cerebral ischemic attack, unspecified; E78.5 Hyperlipidemia, unspecified; R73.03 Prediabetes; M54.50 Low back pain, unspecified; Z79.899 Other long term (current) drug therapy

== ENCOUNTER → 2023-08-17 | Outpatient (CLI) | payer MEDICARE, BC ==
[~2023-08-17] MED LIST changes: +GASTROGRAFIN SOLUTION 30ML As Ordered ONE; +ISOVUE-370 76% 100ML VIAL As Ordered ONE
== END ==
LOC: M RAD 12:10
PROVIDERS: ATTEND Nurse Practitioner Family
DX: R10.84 Generalized abdominal pain (principal)
CPT/HCPCS: 74177; Q9963; Q9967

== ENCOUNTER → 2024-11-29 | Outpatient (REF) | payer MEDICARE, BC ==
[~2024-11-29] MED LIST changes: -GASTROGRAFIN SOLUTION 30ML As Ordered ONE; -ISOVUE-370 76% 100ML VIAL As Ordered ONE; -PRED50TA PO; +PRED50TA57 PO
[2024-11-29 11:48] LABS: BASO # 0.1 10^3/uL (0.0-0.2); BASO % 0.9 % (0.0-1.0); EOS # 0.3 10^3/uL (0.0-0.5); EOS % 3.4 % (0.0-3.0); LYMPH # 3.0 10^3/uL (1.5-5.0); LYMPH % 31.8 % (24.0-44.0); MONO # 0.6 10^3/uL (0.0-0.8); MONO % 6.0 % (2.0-8.0); NEUTROPHILS # 5.3 10^3/uL (1.5-8.5); NEUTROPHILS % 57.4 % (36.0-66.0); PLATELET COUNT, AUTOMATED 313 10^3/uL (150-450)
[2024-11-29 12:17] LABS: ALT/SGPT 20.0 U/L (7.0-40); AST/SGOT 19.0 U/L (<34); CALCIUM LEVEL 9.4 MG/DL (8.3-10.6); CARBON DIOXIDE LEVEL 31.0 MMOL/L (20-31); CHLORIDE LEVEL 103.0 MMOL/L (98-107); CHOLESTEROL LEVEL 173.0 MG/DL (<200); CHOLESTEROL RISK RATIO 3.37 (<5); CREATININE FOR GFR 0.93 MG/DL (0.55-1.30); FREE T4 1.12 NG/DL (0.89-1.76); GLOMERULAR FILTRATION RATE 64.5 (>39); LDL CHOLESTEROL 91.4 MG/DL (<100); MAGNESIUM LEVEL 2.1 MG/DL (1.8-2.4); NON-HDL-C 121.8 MG/DL; POTASSIUM SERUM 4.5 MMOL/L (3.5-5.1); SODIUM LEVEL 142.0 MMOL/L (136-145); TRIGLYCERIDES LEVEL 152.0 MG/DL (<150)
[2024-11-29 12:27] LABS: ESTIMATED AVERAGE GLUCOSE 123.0 MG/DL (60-110)
== END ==
LOC: M SFHCCLAY 08:48
PROVIDERS: ATTEND Nurse Practitioner Family
DX: Z00.00 Encounter for general adult medical examination without abnormal findings (principal); I65.1 Occlusion and stenosis of basilar artery; E78.5 Hyperlipidemia, unspecified; R73.03 Prediabetes; M54.50 Low back pain, unspecified; Z79.899 Other long term (current) drug therapy